=== PATIENT | male | born 1940 | race Caucasian/White ===

== ENCOUNTER 2017-04-16 19:24 | Inpatient (IN) ==
[2017-04-16] MEDS ORDERED: ALBUTEROL/IPRATROPIUM 3 ML NEB RESP TX STA (19:49)
[2017-04-16] MEDS ORDERED: FUROSEMIDE 100 MG/10 ML VIAL IV STA (19:49)
[2017-04-16] MEDS ORDERED: CLINDAMYCIN INJ 900 MG in PREMIX 1 EACH IV STA (19:49)
--- NOTE | 2017-04-16 19:57 | Emergency Department Note ---
Arrival - Arrival Chief Complaint: Shortness of Breath ED Nursing Triage Note: PT ARRIVES VIA EMS WITH COMPLAINTS OF SWELLING AND SOB FOR A WEEK. PT STATES THAT HE RAN OUT OF HIS LASIX AND WHEN HE GOT THE REFILL HE STARTED TAKING IT BUT THAT HE STILL HAS SWELLING AND HAD SOME WORSENING SOB TODAY. PT AT TIME OF TRIAGE DENIES ANY PAIN OR SOB AT THIS TIME. + 4 PTIING EDEMA NOTED TO LOWER EXT. Mode of Arrival: Stretcher Limitations: No Limitations Source: Patient Time Seen by Provider: 04/16/17 19:49 - History of Present Illness HPI Narrative: This 76-year-old white male presents with a history of chronic swelling of the legs associated with orthopnea and PND which had gotten worse over the last several weeks up until a week ago. At that time he saw his primary care physician who increased his Lasix, and aiding in the orthopnea complaints; however, pedal edema has not improved. The patient likewise has been plagued by intermittent retrosternal chest tightness with mild shortness of breath but no diaphoresis, nausea, or vomiting. Currently he appears in no acute distress. Onset (ago): week(s) (Patient presents 1 week post onset of symptoms) Allergies/Adverse Reactions: Allergies Allergy/AdvReac Type Severity Reaction Status Date / Time [place] Allergy Unknown/Unable Verified 07/11/16 15:03 to obtain Penicillins Allergy Unknown/Unable Verified 07/11/16 15:03 to obtain Home Medications: Home Medications Medication Instructions Recorded Confirmed Type Aspirin [Ecotrin] 81 mg PO BEDTIME 07/11/16 04/16/17 History Atorvastatin Calcium 40 mg PO DAILY 07/11/16 04/16/17 History Doxazosin Mesylate 4 mg PO DAILY 07/11/16 04/16/17 History Finasteride 5 mg PO DAILY 07/11/16 04/16/17 History Furosemide Tab [Lasix Tab] 40 mg PO BID DIURETIC 07/11/16 04/16/17 History Gabapentin 300 mg PO TID 07/11/16 04/16/17 History Hydroxychloroquine [Plaquenil] 200 mg PO DAILY 07/11/16 04/16/17 History Ibuprofen Tab [Motrin Tab] 400 mg PO QID PRN #20 tablet 07/11/16 04/16/17 Rx Krill/Om-3/Dha/Epa/Phospho/Ast 1 each PO DAILY 07/11/16 04/16/17 History [[place]-3 Krill Oil 300 mg Sfgl] Levothyroxine Tab [Synthroid Tab] 125 mcg PO DAILY 07/11/16 04/16/17 History Metformin HCl 1,000 mg PO BID 07/11/16 04/16/17 History Methocarbamol Tab [Robaxin Tab] 500 mg PO QID PRN #20 tablet 07/11/16 04/16/17 Rx Ubidecarenone [Coenzyme Q10] 200 mg PO DAILY 07/11/16 04/16/17 History glipiZIDE [Glipizide] 10 mg PO BID 07/11/16 04/16/17 History predniSONE TAB [PredniSONE] 5 mg PO DAILY 07/11/16 04/16/17 History rOPINIRole [Requip] 0.25 mg PO TID 07/11/16 04/16/17 History Clindamycin HCl [Clindamycin Cap] 300 mg PO Q8HR #30 capsule 04/16/17 Rx Ferrous Sulfate [Iron] 325 mg PO TID #90 tablet 04/16/17 Rx Review of System - Review of System 12 point system: reviewed and no additional remarkable complaints except as stated - Review of System Constitutional: Present: as per HPI Respiratory: Present: as per HPI Cardiovascular: Present: as per HPI Gastrointestinal: Present: as per HPI Musculoskeletal: Present: as per HPI Medical,Surgical,& Family Hx - Medical History Cardio: History of: CHF, Hypertension Endocrine: History of: Diabetes Mellitus (NIDDM), Thyroid Disorder Rheumatology: History of;: Rheumatoid Arthritis Respiratory: History of: Obstructive Sleep Apnea Other: History of: Miscellaneous Medical Problems (neuropathy) - Surgical History Orthopedic Surgeries: Surgical HX of;: Total Hip Replacement - Social History Smoking Status: Never smoker Frequency of Alcohol Use: None Type of Drug Use: None Exam Physical Examination: GENERAL: Obese elderly white male in no acute distress. HEENT: Normocephalic. No trauma. Moist mucous membranes. EOMI. PERRLA. ENT NML NECK: Supple. No adenopathy. CARDIAC: Irregular. No murmurs. Heart rate 76 CHEST: Bibasilar expiratory rales. No respiratory distress. ABDOMEN: Soft. Nontender. Active bowel sounds. EXTREMITIES: No trauma. Normal ROM. What appears to be lymphedema rather than rra-oh-smh-mill pedal edema associated with bilateral calf tenderness but negative Hom[place] SKIN: No diaphoresis. Bilateral anterior stasis cellulitis NEURO: Alert. Neuro intact no focal deficits. Vital Signs: Vital Signs Temperature 98.4 F 04/16/17 19:24 Pulse Rate 95 H 04/16/17 20:02 Respiratory Rate 30 H 04/16/17 20:02 Blood Pressure 126/69 04/16/17 19:24 O2 Sat by Pulse Oximetry 100 04/16/17 20:02 Course - Reevaluation(s) Reevaluation #1: Advised patient of the normality of his results and the need to treat a superficial cellulitis. I tried to explain to him the facts of life of chronic lymphedema. He states that his low hematocrit is currently being addressed however he has out of iron tablets and would need more. Results - Labs CBC & BMP: 04/16/17 20:08 04/16/17 20:08 Labs: The low hematocrit was noted. In particular I noted the normal BNP. - Impressions EKG: First-degree heart block at 103 with right bundle branch block. Nonspecific ST changes. No acute injury pattern noted. - Diagnostic Findings Procedure: Chest x-ray: image reviewed by me, report reviewed by me ( Cardiomegaly) Disposition Clinical Impression: Chronic lymphedema, Stasis cellulitis, Chronic anemia Case discussed with: patient, patient's family Disposition: Disch To Home/Self Care Condition: Stable Additional Instructions: Take medications per instructions. Keep your appointment with your physician next week. Take your medications as you are currently with the addition of the antibiotic and iron tablets given tonight. Prescriptions: Clindamycin HCl [Clindamycin Cap] 300 mg PO Q8HR #30 capsule Ferrous Sulfate [Iron] 325 mg PO TID #90 tablet Time of Disposition: 21:30
--- NOTE | 2017-04-16 20:14 | XRay Report ---
History short of breath Comparison 06/12/2011 The heart is mildly enlarged with scoliotic prior median sternotomy Prior left basilar consolidation and effusion has cleared in the interval. No confluent infiltrate seen on today's study Impression: Mild cardiomegaly PROCEDURE INTERPRETED AT [facility] DEPARTMENT OF RADIOLOGY Final Report Signed by: Dr. Jossy Burgos
[2017-04-16] MEDS ORDERED: FUROSEMIDE 40 MG/4 ML VIAL ONE (20:23)
[2017-04-16] MEDS ORDERED: CLINDAMYCIN INJ 50 ML IV ONE (20:23)
[2017-04-16 20:24] LABS: Basophils % 0.2 % (0.0-0.8); Eosinophils # 0.2 10*3/uL (0.0-0.87); Eosinophils % 1.7 % (0.00-10.9); Hemoglobin 8.5 GM/DL (14.0-18.0); Immature Granulocytes % 0.5 %; Immature Granulocytes Absolute 0.05 #; Lymphocytes % 31.8 % (21.2-54.2); Mean Corpuscular HGB Conc 30.4 GM/DL (32-36); Mean Corpuscular Hemoglobin 22 PG (27-34); Mean Corpuscular Volume 73.9 FL (87-102); Monocytes % 10.8 % (1.7-12.7); Neutrophils # 5.2 10*3/uL (1.4-7.4); Platelet Count 299 T/CUMM (130-400); Red Blood Count 3.79 MC/CUMM (3.8-5.5); Red Cell Distribution Width 19.3 % (9.3-17.3); White Blood Count 9.5 T/CUMM (4-12)
[2017-04-16 20:36] LABS: INR 1.1; PT Patient Result 11.8 SECS; Partial Thromboplastin Time 27.6 SECS (0-40)
--- NOTE | 2017-04-16 20:42 | Ultrasound Report ---
History bilateral leg pain and swelling Bilateral lower extremity venous Doppler performed with grayscale, spectral Doppler, and color flow analysis performed and interpreted. No evidence of echogenic, noncompressible thrombus seen in either common femoral, superficial femoral, popliteal, or saphenous veins Impression: No evidence of DVT seen in either lower extremity. PROCEDURE INTERPRETED AT [facility] DEPARTMENT OF RADIOLOGY Final Report Signed by: Dr. Jossy Burgos
[2017-04-16 20:54] LABS: Alanine Aminotransferase 11 U/L (16-61); Albumin 2.4 G/DL (3.4-5.0); Alkaline Phosphatase 49 U/L (45-117); Aspartate Amino Transferase 17 U/L (0-37); Bilirubin,Total < 0.39 MG/DL (0.2-1.0); Blood Urea Nitrogen 41 MG/DL (7-18); Calcium 8.2 MG/DL (8.5-10.1); Glucose 124 MG/DL (74-106); Osmolality,Calculated 293.1 MOS/KG (273-304); Potassium 4.3 MMOL/L (3.5-5.1); Sodium 142 MMOL/L (136-145); Total Protein 5.5 G/DL (6.4-8.3); Troponin I Only < 0.015 NG/ML (0.00-0.045)
[2017-04-16 21:00] LABS: Free T4 (Free Thyroxine) 1.09 NG/DL (0.76-1.46); Thyroid Stimulating Hormone 1.41 uIU/ml (0.358-3.74)
[2017-04-16 21:12] LABS: Apearance,Urine CLEAR (Clear); Bilirubin,Urine Negative (Negative); Blood, Urine Negative (Negative); Glucose,Urine (UA) Negative (Negative); Hyaline Casts,Urine 1 /LPF (0-3); Ketones,Urine 5 mg/dL (Negative); Nitrite,Urine Negative (Negative); Protein,Urine Negative; RBC,Urine <1 /HPF (0-4); Urine Color Straw (Yellow); Urine Specific Gravity 1.017 (1.001-1.035); Urine Urobilinogen < 2.0 EU/DL (0.2-1.0); WBC,Urine <1 /HPF (0-6)
[2017-04-16 21:22] LABS: Barbiturates Screen,Urine Negative (Negative); Benzodiazepines Screen,Urine Negative (Negative); Cannabinoid Screen,Urine Negative (Negative); Opiate Screen,Urine Negative (Negative); Phencyclidine Screen,Urine Negative (Negative)
[2017-04-16] MEDS ORDERED: ONDANSETRON 4 MG/2 ML VIAL ONE (22:01)
[2017-04-16] MEDS ORDERED: ONDANSETRON 4 MG/2 ML VIAL IV STA (22:06)
[2017-04-16] MEDS ORDERED: PANTOPRAZOLE 40 MG VIAL IV STA (22:08)
[2017-04-16] MEDS ORDERED: METOCLOPRAMIDE 10 MG/2 ML VIAL IV STA (22:08)
[2017-04-16] MEDS ORDERED: ALBUTEROL 2.5 MG/3 ML NEB RESP TX PRN (22:59)
[2017-04-16] MEDS ORDERED: METOCLOPRAMIDE 10 MG/2 ML VIAL ONE (22:59)
[2017-04-16] MEDS ORDERED: ONDANSETRON 4 MG/2 ML VIAL IV PRN (22:59)
[2017-04-16] MEDS ORDERED: PANTOPRAZOLE 40 MG VIAL IV ONE (22:59)
[2017-04-16] MEDS ORDERED: GLUCAGON 1 MG VIAL IM PRN (23:03)
[2017-04-16] MEDS ORDERED: DEXTROSE 50% 25 GM/50 ML VIAL IV PRN (23:03)
--- NOTE | 2017-04-16 23:07 | Hospitalist History & Physical ---
Assessment and Plan (1) Upper gastrointestinal hemorrhage Status: Acute Current Visit: Yes (2) History of cardiomyopathy Status: Acute Current Visit: Yes (3) Chronic anemia Status: Acute Current Visit: Yes (4) History of coronary artery disease Status: Acute Current Visit: Yes (5) History of congestive heart failure Status: Acute Current Visit: Yes (6) DNR (do not resuscitate) Status: Acute Assessment and plan: Our plan for this patient will be admission to ICU. Will consult GI for their evaluation. I suspect this is from frequent doses of Motrin. Continue home meds as appropriate. Check Accu-Cheks before meals and at bedtime. Will check H&H every 4 hours. Transfuse as needed. Current Visit: Yes History of Present Illness Chief complaint: Lower extremity swelling History of present illness: Mr. Babcock is a 76 year old male with past medical history significant for anemia, diabetes, congestive heart failure and coronary artery disease who reports he was having chest pain shortness of breath. He has been having some issues with lower extremity swelling. He has been given Lasix before and it improved his symptoms. He said that he had been without his Lasix for a few days. His foot was still swelling. Since his been in the ER his shortness of breath has had improved. But he had a black tarry stool while in the ER and then had coffee-ground emesis. Secondary to an upper GI bleed I was consulted for admission to the emergency room. Home Medications Medication Instructions Recorded Confirmed Type Aspirin [Ecotrin] 81 mg PO BEDTIME 07/11/16 04/16/17 History Atorvastatin Calcium 40 mg PO DAILY 07/11/16 04/16/17 History Doxazosin Mesylate 4 mg PO DAILY 07/11/16 04/16/17 History Finasteride 5 mg PO DAILY 07/11/16 04/16/17 History Furosemide Tab [Lasix Tab] 40 mg PO BID DIURETIC 07/11/16 04/16/17 History Gabapentin 300 mg PO TID 07/11/16 04/16/17 History Hydroxychloroquine [Plaquenil] 200 mg PO DAILY 07/11/16 04/16/17 History Ibuprofen Tab [Motrin Tab] 400 mg PO QID PRN #20 tablet 07/11/16 04/16/17 Rx Krill/Om-3/Dha/Epa/Phospho/Ast 1 each PO DAILY 07/11/16 04/16/17 History [[place]-3 Krill Oil 300 mg Sfgl] Levothyroxine Tab [Synthroid Tab] 125 mcg PO DAILY 07/11/16 04/16/17 History Metformin HCl 1,000 mg PO BID 07/11/16 04/16/17 History Methocarbamol Tab [Robaxin Tab] 500 mg PO QID PRN #20 tablet 07/11/16 04/16/17 Rx Ubidecarenone [Coenzyme Q10] 200 mg PO DAILY 07/11/16 04/16/17 History glipiZIDE [Glipizide] 10 mg PO BID 07/11/16 04/16/17 History predniSONE TAB [PredniSONE] 5 mg PO DAILY 07/11/16 04/16/17 History rOPINIRole [Requip] 0.25 mg PO TID 07/11/16 04/16/17 History Clindamycin HCl [Clindamycin Cap] 300 mg PO Q8HR #30 capsule 04/16/17 Rx Ferrous Sulfate [Iron] 325 mg PO TID #90 tablet 04/16/17 Rx Allergies Allergy/AdvReac Type Severity Reaction Status Date / Time [place] Allergy Unknown/Unable Verified 07/11/16 15:03 to obtain Penicillins Allergy Unknown/Unable Verified 07/11/16 15:03 to obtain Medical,Surgical,& Family Hx - Medical History Cardio: History of: CHF, Hypertension Endocrine: History of: Diabetes Mellitus (NIDDM), Thyroid Disorder Rheumatology: History of;: Rheumatoid Arthritis Respiratory: History of: Obstructive Sleep Apnea Other: History of: Miscellaneous Medical Problems (neuropathy) - Surgical History Orthopedic Surgeries: Surgical HX of;: Total Hip Replacement - Social History Smoking Status: Never smoker Frequency of Alcohol Use: None Type of Drug Use: None 12 point system: reviewed and no additional remarkable complaints except as stated Exam - Constitutional Vitals: Period Temp Pulse Resp BP Sys/Walsh Pulse Ox Last 24 Hr 98.4 F-98.4 F 76-96 22-36 126-126/69-69 93-100 General appearance: over weight - Head Head exam: Present: normal inspection - Eye Eye exam: Present: EOMI Pupils: Present: KADE - ENT ENT exam: Present: normal exam - Neck Neck exam: Present: normal inspection - Respiratory Respiratory exam: Present: clear to auscultation bilaterally - Cardiovascular Cardiovascular exam: Present: regular rate and rhythm - GI/Abdominal GI/Abdominal exam: Present: normal bowel sounds, other (Heme positive stool per ER physician) - Extremities Exam Extremities exam: Present: edema - Back Exam Back exam: Present: normal inspection - Neurological Exam Neurological exam: Present: alert - Psychiatric Psychiatric exam: Present: normal affect - Skin Skin exam: Present: normal color Results - Labs CBC & BMP: 04/16/17 20:08 04/16/17 20:08
[2017-04-16 23:41] LABS: Basophils % 0.4 % (0.0-0.8); Eosinophils # 0.1 10*3/uL (0.0-0.87); Eosinophils % 1.1 % (0.00-10.9); Hematocrit 28.3 VOL% (42.0-52.0); Hemoglobin 8.4 GM/DL (14.0-18.0); Immature Granulocytes % 0.8 %; Immature Granulocytes Absolute 0.07 #; Lymphocytes # 1.9 10*3/uL (1.4-4.0); Lymphocytes % 20.7 % (21.2-54.2); Mean Corpuscular HGB Conc 29.7 GM/DL (32-36); Mean Corpuscular Hemoglobin 22 PG (27-34); Mean Corpuscular Volume 74.9 FL (87-102); Mean Platelet Volume 9.2 FL (9.6-12.0); Monocytes # 0.9 10*3/uL (0.11-0.8); Monocytes % 10.2 % (1.7-12.7); Neutrophils # 6.2 10*3/uL (1.4-7.4); Neutrophils % 66.8 % (38.7-73.9); Platelet Count 316 T/CUMM (130-400); Red Blood Count 3.78 MC/CUMM (3.8-5.5); Red Cell Distribution Width 19.3 % (9.3-17.3); White Blood Count 9.2 T/CUMM (4-12)
[2017-04-17] MEDS: rOPINIRole 0.25 MG TABLET PO SCH ×4 (01:14→20:37)
[2017-04-17 05:14] LABS: Hematocrit 23.8 VOL% (42.0-52.0); Hemoglobin 7.3 GM/DL (14.0-18.0)
[2017-04-17] MEDS: LEVOTHYROXINE 125 MCG TABLET PO SCH (06:56)
[2017-04-17] MEDS ORDERED: diphenhydrAMINE CAP 25 MG CAPSULE PO PRN (07:53)
[2017-04-17] MEDS: INSULIN REGULAR 100 UNIT/ML SUBCUT SCH ×4 (08:14→20:36)
--- NOTE | 2017-04-17 08:14 | EKG Report ---
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
[2017-04-17] MEDS: predniSONE 5 MG TABLET PO SCH (08:15)
[2017-04-17] MEDS: FUROSEMIDE 40 MG TABLET PO SCH ×2 (08:15→16:02)
[2017-04-17] MEDS: DOXAZOSIN 4 MG TABLET PO SCH (08:15)
[2017-04-17] MEDS: ATORVASTATIN 40 MG TABLET PO SCH (08:15)
[2017-04-17] MEDS: HYDROXYCHLOROQUINE 200 MG TABLET PO SCH (08:15)
[2017-04-17] MEDS: GABAPENTIN 300 MG CAPSULE PO SCH ×3 (08:15→20:37)
[2017-04-17] MEDS: FINASTERIDE 5 MG TABLET PO SCH (08:15)
[2017-04-17] MEDS: PANTOPRAZOLE 40 MG VIAL IV SCH ×2 (08:16→20:37)
--- NOTE | 2017-04-17 08:33 | EKG Report ---
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
[2017-04-17] MEDS: TROLAMINE SALICYLATE 10% CREAM 85 GM TUBE TOP PRN (11:53)
--- NOTE | 2017-04-17 12:15 | Gastrointestinal Consult Note ---
Assessment and Plan (1) Upper gastrointestinal hemorrhage Status: Acute Assessment and plan: 6/7-Onset chest discomfort and SOB, melena and coffee ground emesis. Findings of hgb 7.3, transfusing 2 units PRBC. No prior hx of endoscopy. Hx of NSAID use in remote past. Iron supplement therapy. Plan for tentative EGD tomorrow to further evaluate. Plan and addendum to follow by Dr Tidwell. Current Visit: Yes History of Present Illness Chief complaint: GI bleed History of present illness: Mr. Babcock is a 76 year old male who presented to the hospital with onset of swelling to lower extremities as well as SOB. Pt states that he was not feeling well the last couple of days and noted to have increased swelling to his legs. He started back on his Lasix to remove some fluid due to having increased fatigue and shortness of breath. He also states he had some vague chest tightness along with these symptoms. He came to the ER for further evaluation at that time. While in the ER, patient states he had an urge to defecate and at that time had a large amount of dark black stool. He states he also had onset of nausea and began vomitting coffee ground emesis. Pt states this has never occurred before. He states prior to yesterday his stools were normal in color. He denies a history of GI bleeding in the past. Denies history of PUD and state he has never had endoscopy before. He states that he has never been anemic in the past. He is noted on iron therapy as well which pt states he has taken off and on in the past. He was found to have hemoglobin of 8.4 on admission and down to 7.3 today. He is receiving 2 units of PRBC at this time. Pt denies any epigastric pain. He denies any reflux, increased belching, or bloating. He denies any NSAID use however states until two months ago he took upwards of 6 Motrin daily for a period of time due to knee pain, however states this was stopped due to his kidneys. He does not take a PPI regularly. He denies any recent weight loss, fever, chills, night sweats. Denies any dysphagia or GERD symptoms. Home Medications Medication Instructions Recorded Confirmed Type Aspirin [Ecotrin] 81 mg PO BEDTIME 07/11/16 04/16/17 History Atorvastatin Calcium 40 mg PO DAILY 07/11/16 04/16/17 History Doxazosin Mesylate 4 mg PO DAILY 07/11/16 04/16/17 History Finasteride 5 mg PO DAILY 07/11/16 04/16/17 History Furosemide Tab [Lasix Tab] 40 mg PO BID DIURETIC 07/11/16 04/16/17 History Gabapentin 300 mg PO TID 07/11/16 04/16/17 History Hydroxychloroquine [Plaquenil] 200 mg PO DAILY 07/11/16 04/16/17 History Ibuprofen Tab [Motrin Tab] 400 mg PO QID PRN #20 tablet 07/11/16 04/16/17 Rx Krill/Om-3/Dha/Epa/Phospho/Ast 1 each PO DAILY 07/11/16 04/16/17 History [[place]-3 Krill Oil 300 mg Sfgl] Levothyroxine Tab [Synthroid Tab] 125 mcg PO DAILY 07/11/16 04/16/17 History Metformin HCl 1,000 mg PO BID 07/11/16 04/16/17 History Methocarbamol Tab [Robaxin Tab] 500 mg PO QID PRN #20 tablet 07/11/16 04/16/17 Rx Ubidecarenone [Coenzyme Q10] 200 mg PO DAILY 07/11/16 04/16/17 History glipiZIDE [Glipizide] 10 mg PO BID 07/11/16 04/16/17 History predniSONE TAB [PredniSONE] 5 mg PO DAILY 07/11/16 04/16/17 History rOPINIRole [Requip] 0.25 mg PO TID 07/11/16 04/16/17 History Clindamycin HCl [Clindamycin Cap] 300 mg PO Q8HR #30 capsule 04/16/17 Rx Ferrous Sulfate [Iron] 325 mg PO TID #90 tablet 04/16/17 Rx Allergies Allergy/AdvReac Type Severity Reaction Status Date / Time [place] Allergy Unknown/Unable Verified 07/11/16 15:03 to obtain Penicillins Allergy Unknown/Unable Verified 07/11/16 15:03 to obtain Medical,Surgical,& Family Hx - Medical History Cardio: History of: CHF, Hypertension Endocrine: History of: Diabetes Mellitus (NIDDM), Thyroid Disorder Rheumatology: History of;: Rheumatoid Arthritis Respiratory: History of: Obstructive Sleep Apnea, Pneumonia Other: History of: Miscellaneous Medical Problems (neuropathy) - Surgical History Cardiac Surgeries: Sugical HX of: Cardiac Surgery (bypass 2012?) Thoracic Surgeries: Patient denies;: Lobectomy Neurologic Surgeries: Patient denies: Neurologic Surgery Orthopedic Surgeries: Surgical HX of;: Total Hip Replacement - Family History Family History: Reports;: Family Diabetes, Family Heart Disease - Social History Smoking Status: Never smoker Frequency of Alcohol Use: None Type of Drug Use: None 12 point system: reviewed and no additional remarkable complaints except as stated - Constitutional Constitutional: Present: as per HPI - EENT Eyes: Present: as per HPI Ears: Present: as per HPI Nose, mouth and throat: Present: as per HPI - Cardiovascular Cardiovascular: Present: as per HPI, dyspnea - Respiratory Respiratory: Present: as per HPI - Gastrointestinal Gastrointestinal: Present: as per HPI, coffee ground emesis, melena, nausea, vomiting - Genitourinary Genitourinary: Present: as per HPI - Musculoskeletal Musculoskeletal: Present: as per HPI - Neurological Neurological: Present: as per HPI - Psychiatric Psychiatric: Present: as per HPI - Endocrine Endocrine: Present: as per HPI - Hematologic/Lymphatic Hematologic/Lymphatic: Present: as per HPI Exam - Constitutional Vitals: Period Temp Pulse Resp BP Sys/Walsh Pulse Ox Last 24 Hr 97.7 F-99.1 F 76-108 15-36 108-150/53-91 92-100 General appearance: normal weight, no acute distress - Head Head exam: Present: normal inspection, normocephalic - Eye Eye exam: Present: other (lids and conjunctiva unremarkable). Absent: scleral icterus - ENT ENT exam: Present: normal exam, normal oropharynx - Neck Neck exam: Present: normal inspection - Respiratory Respiratory exam: Present: clear to auscultation bilaterally. Absent: rales, rhonchi, wheezes - Cardiovascular Cardiovascular exam: Present: regular rate and rhythm. Absent: diastolic murmur , JVD, systolic murmur - GI/Abdominal GI/Abdominal exam: Present: normal bowel sounds, soft. Absent: ascites, distended, mass, organomegaly, tenderness - Extremities Exam Extremities exam: Present: normal inspection, full ROM - Back Exam Back exam: Present: normal inspection - Neurological Exam Neurological exam: Present: alert, oriented X3 - Psychiatric Psychiatric exam: Present: normal affect, normal mood - Skin Skin exam: Present: normal color, warm, dry Results - Labs CBC & BMP: 04/17/17 04:03 04/16/17 20:08 Lab Results: I have reviewed the past 24 hour labs
[2017-04-17 14:30] LABS: Hematocrit 27.5 VOL% (42.0-52.0); Hemoglobin 8.4 GM/DL (14.0-18.0)
--- NOTE | 2017-04-17 16:12 | Hospitalist Progress Note ---
Assessment and Plan (1) Upper gastrointestinal hemorrhage Status: Acute Current Visit: Yes (2) History of coronary artery disease Status: Acute Current Visit: Yes (3) History of congestive heart failure Status: Acute Current Visit: Yes (4) DNR (do not resuscitate) Status: Acute Assessment and plan: Continue in ICU and Q4 hour H/H checks. Patient has received 2 units of pRBCs with an inappropriate rise in H/H. Continue IV PPI BID. Transfuse to keep Hgb above 8 for EGD in am. Currently hemodynamically stable. NPO at ND. Current Visit: Yes Hospitalist: Subjective Interval history: 76 yo male admitted with symptoms of chest pain and shortness of breath that he related to being out of his Lasix. He was subsequently noted to be severely anemic and was found to have melanic stools and coffee ground emesis. He's been admitted for GI evaluation. Troponin negative. He's recieved 2units pRBC's with an inappropriate response in H/H. GI with plans for endoscopy on tomorrow. Exam - Constitutional Vitals: Period Temp Pulse Resp BP Sys/Walsh Pulse Ox Last 24 Hr 97.7 F-99.1 F 75-108 12-36 108-150/53-91 92-100 General appearance: no acute distress - Head Head exam: Present: normal inspection, normocephalic, atraumatic - Respiratory Respiratory exam: Present: clear to auscultation bilaterally - Cardiovascular Cardiovascular exam: Present: regular rate and rhythm - GI/Abdominal GI/Abdominal exam: Present: normal bowel sounds - Neurological Exam Neurological exam: Present: CN II-XII intact - Skin Skin exam: Present: pallor Results - Labs CBC & BMP: 04/17/17 14:21 04/16/17 20:08
[2017-04-17 18:47] LABS: Hematocrit 27.1 VOL% (42.0-52.0); Hemoglobin 8.4 GM/DL (14.0-18.0)
[2017-04-17 23:00] LABS: Hematocrit 28.7 VOL% (42.0-52.0); Hemoglobin 8.8 GM/DL (14.0-18.0)
[2017-04-18] MEDS: LEVOTHYROXINE 125 MCG TABLET PO SCH (06:07)
[2017-04-18] MEDS: TROLAMINE SALICYLATE 10% CREAM 85 GM TUBE TOP PRN ×2 (07:00→10:45)
[2017-04-18] MEDS: INSULIN REGULAR 100 UNIT/ML SUBCUT SCH ×5 (07:29→20:48)
[2017-04-18 07:44] LABS: Hematocrit 28.6 VOL% (42.0-52.0); Hemoglobin 8.5 GM/DL (14.0-18.0)
[2017-04-18] MEDS: PANTOPRAZOLE 40 MG VIAL IV SCH ×2 (09:00→20:48)
[2017-04-18] MEDS ORDERED: PROPOFOL 200 MG/20 ML VIAL IV ONE (09:30)
[2017-04-18] MEDS ORDERED: LIDOCAINE 2% 5 ML VIAL ONE (09:30)
--- NOTE | 2017-04-18 09:33 | History and Physical Update ---
History and Physical Update - History and Physical H&P was reviewed, the patient examined and there: are no changes in the patients condition since last H&P was completed. - Physical Exam Mental Status: alert and oriented Heart: regular rate and rhythm Lung: clear to auscultation Abdomen: within normal limits Vitals: within normal limits
--- NOTE | 2017-04-18 09:41 | Operative Note ---
Date of procedure: 04/18/17 Pre-op diagnosis: Upper GI bleed Procedure: Procedure: Esophagogastroduodenoscopy with heater probe coagulation gastric ulcer visible vessel and biopsies gastric ulcers Brief clinical abstract: 76-year-old male was admitted with upper GI bleeding with hematemesis and melena. He has required transfusion 2 units packed red blood cells. Indication for procedure: Upper GI bleeding Endoscopic findings:[After informed consent was obtained, the patient was placed in the left lateral decubitus position. The gastroscope was inserted in the upper esophagus under direct vision with no resistance encountered. Esophageal mucosa appeared normal with squamocolumnar junction sharply demarcated above a small hiatal hernia. The endoscope was advanced in the stomach which was carefully examined including retroflexed view of the cardia and fundus. There was a fairly large 1.5-2 cm diameter yellowish based ulcer along the distal greater curve in the antrum. A small visible vessel was noted in the base of this. This was coagulated with heater probe on a setting of 30 W with 2 separate 3 second applications administered with good result noted endoscopically. This did not bleed. A couple of other small 5 mm ulcers were noted in the prepyloric antrum. Several biopsies were obtained from the margin base of these ulcers for pathologic examination. The pyloric channel, duodenal bulb, second and third portion of the duodenum appeared normal. The endoscope was withdrawn and patient appeared to tolerate the procedure well. Impression: #1 small hiatal hernia #2 gastric antral ulcers-1 with visible vessel treated endoscopically as above. Recommendations: Continue PPI therapy. Would observe another 2-3 days with still some residual bleeding risk of endoscopically treated visible vessel. Anesthesia: MAC Surgeon / Physician: Quoc Tidwell Estimated blood loss: minimal Specimens: other (Gastric ulcers) Condition: stable Disposition: post procedure unit Results - Labs CBC & BMP: 04/18/17 07:39 04/16/17 20:08 Discharge Plan - Discharge Medications New Clindamycin HCl [Clindamycin Cap] 300 mg PO Q8HR #30 capsule Ferrous Sulfate [Iron] 325 mg PO TID #90 tablet No Action rOPINIRole [Requip] 0.25 mg PO TID Atorvastatin Calcium 40 mg PO DAILY Aspirin [Ecotrin] 81 mg PO BEDTIME Ubidecarenone [Coenzyme Q10] 200 mg PO DAILY Levothyroxine Tab [Synthroid Tab] 125 mcg PO DAILY Hydroxychloroquine [Plaquenil] 200 mg PO DAILY predniSONE TAB [PredniSONE] 5 mg PO DAILY Furosemide Tab [Lasix Tab] 40 mg PO BID DIURETIC Finasteride 5 mg PO DAILY Doxazosin Mesylate 4 mg PO DAILY glipiZIDE [Glipizide] 10 mg PO BID Metformin HCl 1,000 mg PO BID Krill/Om-3/Dha/Epa/Phospho/Ast [[place]-3 Krill Oil 300 mg Sfgl] 1 each PO DAILY Gabapentin 300 mg PO TID Ibuprofen Tab [Motrin Tab] 400 mg PO QID PRN #20 tablet PRN Reason: back pain Methocarbamol Tab [Robaxin Tab] 500 mg PO QID PRN #20 tablet PRN Reason: low back pain Fexofenadine [Syeda] 180 mg PO DAILY - Follow Up or Referral - Forms/Instructions
--- NOTE | 2017-04-18 09:53 | Anesthesia Post-Op ---
Anesthesia Post OP - Post Ansesthetic Evaluation Patient seen in post op: Yes Resp: within normal limits CV: within normal limits Mental: within normal limits Temp: within normal limits Lsma-[id number]-[id number]: within normal limits Nausea and Vomiting: within normal limits Pain: within normal limits
[2017-04-18] MEDS: ATORVASTATIN 40 MG TABLET PO SCH (10:50)
[2017-04-18] MEDS: rOPINIRole 0.25 MG TABLET PO SCH ×3 (10:50→20:47)
[2017-04-18] MEDS: GABAPENTIN 300 MG CAPSULE PO SCH ×3 (10:50→20:48)
[2017-04-18] MEDS: FINASTERIDE 5 MG TABLET PO SCH (10:50)
[2017-04-18] MEDS: predniSONE 5 MG TABLET PO SCH (10:50)
[2017-04-18] MEDS: DOXAZOSIN 4 MG TABLET PO SCH (10:50)
[2017-04-18] MEDS: HYDROXYCHLOROQUINE 200 MG TABLET PO SCH (10:50)
[2017-04-18] MEDS: FUROSEMIDE 40 MG TABLET PO SCH ×2 (10:50→15:48)
--- NOTE | 2017-04-18 12:35 | Hospitalist Progress Note ---
Assessment and Plan (1) Upper gastrointestinal hemorrhage Status: Acute Current Visit: Yes (2) History of coronary artery disease Status: Acute Current Visit: Yes (3) History of congestive heart failure Status: Acute Current Visit: Yes (4) DNR (do not resuscitate) Status: Acute Assessment and plan: 04/17/17. Continue in ICU and Q4 hour H/H checks. Patient has received 2 units of pRBCs with an inappropriate rise in H/H. Continue IV PPI BID. Transfuse to keep Hgb above 8 for EGD in am. Currently hemodynamically stable. NPO at [place]. 04/18/17. S/P EGD this morning with results of: "Impression: #1 small hiatal hernia #2 gastric antral ulcers-1 with visible vessel treated endoscopically... " Will transfer out of the ICU. Continue to monitor H/H for 2-3 days per GI given residual bleeding risk of endoscopically treated visible vessel. Will continue with PPI treatment. Currently hemodynamically stable. Current Visit: Yes Hospitalist: Subjective Interval history: 76 yo male admitted with symptoms of chest pain and shortness of breath that he related to being out of his Lasix. He was subsequently noted to be severely anemic and was found to have melanic stools and coffee ground emesis. He's been admitted for GI evaluation. Troponin negative. He's recieved 2units pRBC's with an inappropriate response in H/H. Today, he is s/p EDG with multiple gastic ulcers noted on exam. One with a visible non-bleeding vessel that was cauterized. He remains hemodynamically stable but will need to have continued monitoring of H/H to ensure no further blood loss. Continues on IV PPI BID. Exam - Constitutional Vitals: Period Temp Pulse Resp BP Sys/Walsh Pulse Ox Last 24 Hr 96.6 F-99.6 F 70-97 12-28 86-153/54-87 91-100 Exam: General appearance: no acute distress - Head Head exam: Present: normal inspection, normocephalic, atraumatic - Respiratory Respiratory exam: Present: clear to auscultation bilaterally - Cardiovascular Cardiovascular exam: Present: regular rate and rhythm - GI/Abdominal GI/Abdominal exam: Present: hypoactive bowel sounds - Neurological Exam Neurological exam: Present: CN II-XII intact; Essential tremor of right hand. - Skin Skin exam: Present: pallor Results - Labs CBC & BMP: 04/18/17 07:39 04/16/17 20:08
[2017-04-18] MEDS: VANCOMYCIN INJ 1,750 MG in SODIUM CHLORIDE 0.9% 500 ML IV SCH (20:46)
[2017-04-19] MEDS: LEVOTHYROXINE 125 MCG TABLET PO SCH (06:11)
[2017-04-19] MEDS: INSULIN REGULAR 100 UNIT/ML SUBCUT SCH ×4 (07:58→22:07)
[2017-04-19] MEDS: GABAPENTIN 300 MG CAPSULE PO SCH ×3 (07:59→20:41)
[2017-04-19] MEDS: DOXAZOSIN 4 MG TABLET PO SCH (07:59)
[2017-04-19] MEDS: rOPINIRole 0.25 MG TABLET PO SCH ×3 (08:00→20:41)
[2017-04-19] MEDS: FINASTERIDE 5 MG TABLET PO SCH (08:00)
[2017-04-19] MEDS: ATORVASTATIN 40 MG TABLET PO SCH (08:00)
[2017-04-19] MEDS: predniSONE 5 MG TABLET PO SCH (08:00)
[2017-04-19] MEDS: PANTOPRAZOLE 40 MG VIAL IV SCH (08:00)
[2017-04-19] MEDS: VANCOMYCIN INJ 1,750 MG in SODIUM CHLORIDE 0.9% 500 ML IV SCH ×2 (08:00→20:41)
[2017-04-19] MEDS: HYDROXYCHLOROQUINE 200 MG TABLET PO SCH (08:00)
[2017-04-19] MEDS: FUROSEMIDE 40 MG TABLET PO SCH ×2 (08:00→15:28)
[2017-04-19] MEDS: DESITIN 4OZ/NYSTATIN 15 GRAM MIXTURE PASTE TOP SCH ×2 (08:05→22:07)
--- NOTE | 2017-04-19 09:21 | Gastrointestinal Progress Note ---
Assessment and Plan (1) Upper gastrointestinal hemorrhage Status: Acute Assessment and plan: 04/19-no further overt bleeding. EGD findings noted as below. Recheck hemoglobin today. Advance to soft diet. Plan addendum to follow by Dr. Tidwell 04/17-Onset chest discomfort and SOB, melena and coffee ground emesis. Findings of hgb 7.3, transfusing 2 units PRBC. No prior hx of endoscopy. Hx of NSAID use in remote past. Iron supplement therapy. Plan for tentative EGD tomorrow to further evaluate. Plan and addendum to follow by Dr Tidwell. Current Visit: Yes Gastroenterology - PN: Subj Interval history: Cc: GI bleed Patient seen awake alert lying in bed. States he had an uneventful night. He denies any further overt bleeding at this time. Denies any nausea, vomiting or abdominal pain. He is tolerating his diet well. EGD findings noted with small hiatal hernia and gastric antral ulcers with one visible vessel which was treated. His hemoglobin remained stable however no recheck noted today. Will obtain H&H this morning. Abdomen soft, nontender. RS: Denies shortness or chest pain Exam (Progress Note) - Constitutional Vitals: Period Temp Pulse Resp BP Sys/Walsh Pulse Ox Last 24 Hr 97.7 F-99.2 F 83-110 16-28 80-154/40-102 91-97 - Other Additional findings: General appearance: normal weight, no acute distress - Head Head exam: Present: normal inspection, normocephalic - Eye Eye exam: Present: other (lids and conjunctiva unremarkable). Absent: scleral icterus - ENT ENT exam: Present: normal exam, normal oropharynx - Neck Neck exam: Present: normal inspection - Respiratory Respiratory exam: Present: clear to auscultation bilaterally. Absent: rales, rhonchi, wheezes - Cardiovascular Cardiovascular exam: Present: regular rate and rhythm. Absent: diastolic murmur , JVD, systolic murmur - GI/Abdominal GI/Abdominal exam: Present: normal bowel sounds, soft. Absent: ascites, distended, mass, organomegaly, tenderness - Extremities Exam Extremities exam: Present: normal inspection, full ROM - Back Exam Back exam: Present: normal inspection - Neurological Exam Neurological exam: Present: alert, oriented X3 - Psychiatric Psychiatric exam: Present: normal affect, normal mood - Skin Skin exam: Present: normal color, warm, dry Results - Labs CBC & BMP: 04/18/17 07:39 04/16/17 20:08 Lab Results: I have reviewed the past 24 hour labs
[2017-04-19 09:25] LABS: Hematocrit 25.8 VOL% (42.0-52.0); Hemoglobin 7.8 GM/DL (14.0-18.0)
[2017-04-19 09:58] LABS: Hematocrit 26.3 VOL% (42.0-52.0)
--- NOTE | 2017-04-19 11:36 | Pain Management Consult Note ---
Assessment and Plan (1) Knee pain, left Status: Acute Assessment and plan: While his c/o knee pain are chronic he refuses to ambulate. Weight is problematic, possible containment on one blood culture, if sepsis suspected would need MRI. Current Visit: Yes History of Present Illness Chief complaint: left knee pain History of present illness: Mr. Babcock is a 76 year old male chronic left knee pain with him and son reporting increased pain swelling and redness although the swelling has reduced and there is no redness. He wont weight bear on it. We treated him in the past for spondylosis and radiculitis with success. Home Medications Medication Instructions Recorded Confirmed Type Aspirin [Ecotrin] 81 mg PO BEDTIME 07/11/16 04/16/17 History Atorvastatin Calcium 40 mg PO DAILY 07/11/16 04/16/17 History Doxazosin Mesylate 4 mg PO DAILY 07/11/16 04/16/17 History Finasteride 5 mg PO DAILY 07/11/16 04/16/17 History Furosemide Tab [Lasix Tab] 40 mg PO BID DIURETIC 07/11/16 04/16/17 History Gabapentin 300 mg PO TID 07/11/16 04/16/17 History Hydroxychloroquine [Plaquenil] 200 mg PO DAILY 07/11/16 04/16/17 History Ibuprofen Tab [Motrin Tab] 400 mg PO QID PRN #20 tablet 07/11/16 04/16/17 Rx Krill/Om-3/Dha/Epa/Phospho/Ast 1 each PO DAILY 07/11/16 04/16/17 History [[place]-3 Krill Oil 300 mg Sfgl] Levothyroxine Tab [Synthroid Tab] 125 mcg PO DAILY 07/11/16 04/16/17 History Metformin HCl 1,000 mg PO BID 07/11/16 04/16/17 History Methocarbamol Tab [Robaxin Tab] 500 mg PO QID PRN #20 tablet 07/11/16 04/16/17 Rx Ubidecarenone [Coenzyme Q10] 200 mg PO DAILY 07/11/16 04/16/17 History glipiZIDE [Glipizide] 10 mg PO BID 07/11/16 04/16/17 History predniSONE TAB [PredniSONE] 5 mg PO DAILY 07/11/16 04/16/17 History rOPINIRole [Requip] 0.25 mg PO TID 07/11/16 04/16/17 History Clindamycin HCl [Clindamycin Cap] 300 mg PO Q8HR #30 capsule 04/16/17 Rx Ferrous Sulfate [Iron] 325 mg PO TID #90 tablet 04/16/17 Rx Fexofenadine [Syeda] 180 mg PO DAILY 04/17/17 04/17/17 History Allergies Allergy/AdvReac Type Severity Reaction Status Date / Time Glady Allergy Unknown/Unable Verified 07/11/16 15:03 to obtain Penicillins Allergy Unknown/Unable Verified 07/11/16 15:03 to obtain Medical,Surgical,& Family Hx - Medical History Cardio: History of: CHF, Hypertension Neurology: No history of: Seizures Endocrine: History of: Diabetes Mellitus (NIDDM), Thyroid Disorder Rheumatology: History of;: Rheumatoid Arthritis Respiratory: History of: Obstructive Sleep Apnea, Pneumonia Other: History of: Miscellaneous Medical Problems (neuropathy) - Surgical History Cardiac Surgeries: Sugical HX of: Cardiac Surgery (bypass 2012?) Thoracic Surgeries: Patient denies;: Lobectomy Neurologic Surgeries: Patient denies: Neurologic Surgery Orthopedic Surgeries: Surgical HX of;: Total Hip Replacement - Family History Family History: Reports;: Family Diabetes, Family Heart Disease - Social History Smoking Status: Never smoker Frequency of Alcohol Use: None Type of Drug Use: None Exam - Constitutional Vitals: Period Temp Pulse Resp BP Sys/Walsh Pulse Ox Last 24 Hr 97.7 F-99.2 F 83-110 16-20 85-154/50-75 94-97 Results - Labs CBC & BMP: 04/19/17 09:48 04/16/17 20:08
[2017-04-19] MEDS ORDERED: LIDOCAINE 2% 20 ML VIAL MISC INJ ONE (11:44)
[2017-04-19] MEDS ORDERED: TRIAMCINOLONE ACETONIDE 40 MG/1 ML VIAL MISC INJ ONE (11:49)
--- NOTE | 2017-04-19 12:42 | Event Note ---
left knee injection after consent, 25 g after EtOH prep to medial inferior approach center joint neg aspiration, 5 cc lidocaine and 40 mg triamcinalone. No complication.
--- NOTE | 2017-04-19 12:49 | Hospitalist Progress Note ---
Assessment and Plan (1) Upper gastrointestinal hemorrhage Status: Acute Assessment and plan: Status post EGD showed small hiatal hernia and gastric antral ulcers one with a visible vessel treated endoscopically. Continue Protonix Current Visit: Yes (2) Acute blood loss anemia Status: Acute Assessment and plan: Hemoglobin at 8, repeat hemoglobin in a.m. Current Visit: Yes (3) History of coronary artery disease Status: Acute Assessment and plan: Withhold aspirin for a total of 2 weeks Current Visit: Yes (4) History of congestive heart failure Status: Acute Assessment and plan: Echocardiogram not on file. BNP normal. Current Visit: Yes (5) DNR (do not resuscitate) Status: Acute Current Visit: Yes (6) Knee pain, left Status: Acute Assessment and plan: Patient receiving knee injection today by dr. Adams. Current Visit: Yes (7) Obstructive sleep apnea Status: Acute Assessment and plan: Patient sleeps on a CPAP machine at home but did not bring with him. Current Visit: Yes (8) Bacteremia Status: Acute Assessment and plan: 1 of 2 blood cultures positive for staph and gram-positive filiberto both of which are most likely a contaminant, continue vancomycin for now Current Visit: Yes Hospitalist: Subjective Interval history: Patient ambulates with a walker at home. I would like to see him able to do this before going home. Patient was reporting having a lot of pain in his left knee. Dr. Adams does the injections in his back. He is also having a lot of problems with his hip. Dr. Adams is seen him today and done an injection. The blood cultures are most likely a contaminant as they are 1 of 2. He is EGD downstairs showed 2 ulcers. We have advanced his diet to a soft diet. Patient is morbidly obese and elderly. He does not really want to go for rehab prior to going home. We will see how he does with PT today Exam - Constitutional Vitals: Period Temp Pulse Resp BP Sys/Walsh Pulse Ox Last 24 Hr 97.7 F-98.9 F 82-110 16-20 99-154/50-75 95-97 Exam: Heart Rate-[RRR] Lungs-[very diminished] GI-[+bs soft, NT] Ext-[1+ edema] Neuro [Motor 5/5], [alert and oriented times 3] psych [normal mood and affect] General [no acute distress] Results - Labs CBC & BMP: 04/19/17 09:48 04/16/17 20:08 Lab Results: I have reviewed the past 24 hour labs - Diagnostic Findings Procedure: Chest x-ray: report reviewed by me (Enlarged heart), Ultrasound: report reviewed by me (Negative DVT)
--- NOTE | 2017-04-19 13:29 | Pathology Report from [facility] ---
[facility] ACCESSION # : [id number] PATIENT NAME : Jr. Babcock Oliver A. ORDERING DR : KURT BIRD MD CLINICAL HX: GI Bleed POST-OP DX: Gastric ulcer SPECIMEN INFO: Gastric ulcer biopsy GROSS DESCRIPTION: The specimen is received in formalin labeled with the patients name and consists of a 0.9 x 0.4 cm aggregate of chowdary tissue. Submitted in one cassette. DIAGNOSIS FOR [facility] [place]: GASTRIC ULCER BIOPSY: Chronic superficial gastritis. H. pylori not seen on special stain. COLLECTED DATE: 04/18/2017 [facility] REPORT DATE: 04/19/2017 ELECTRONICALLY SIGNED BY: Dileep Penn M.D. 04/19/2017 - 10:23:34 [facility] CENTERHailey
--- NOTE | 2017-04-19 15:29 | ECHO Report ---
Paul Babcock Exam Date: 04/19/2017 14:31 Referring Physician: Technologist: Lala Alvarez Age: 76 Ht (in): 68 Wt (lb): 266 Gender: M Exam Location: [facility] Echo Indications: bacteremia, SHERRI, knee pain, Hx. CHF, SOB, upper gastric hemorrhage, acute anemia, Hx. CAD BP: 130 / 65 HR: 82 Rhythm: Sinus Technical Quality: Technically difficult study IMPRESSIONS Mild concentric left ventricular hypertrophy with diastolic dysfunction. Left ventricular ejection fraction is estimated at 55-60 %. Normal right ventricular size. The right atrium is mildly enlarged. The left atrium is mildly enlarged. Mild mitral valve sclerosis. Trace - mild mitral valve regurgitation. Mild aortic valve sclerosis. Trace aortic valve regurgitation. Morphologically normal tricuspid valve. Mild tricuspid valve regurgitation. Tricuspid regurgitation velocities suggest a PAP of 28 mmHg. Morphologically normal pulmonic valve. Trace pulmonary valve regurgitation. No pericardial effusion. Normal size aortic root and proximal ascending aorta. MEASUREMENTS (Male / Female) Normal Values 2D ECHO LV Diastolic Diameter PLAX 5.0 cm 4.2 - 5.9 / 3.9 - 5.3 cm LV Systolic Diameter PLAX 2.8 cm LV Fractional Shortening PLAX 44.0 % IVS Diastolic Thickness 1.3 cm 0.6 - 1.0 / 0.6 - 0.9 cm LVPW Diastolic Thickness 1.3 cm 0.6 - 1.0 / 0.6 - 0.9 cm RV Internal Dim ED PLAX 3.2 cm Aortic Root Diameter 2.8 cm LA Systolic Diameter LX 3.4 cm 3.0 - 4.0 / 2.7 - 3.8 cm DOPPLER TR Peak Velocity 210.0 cm/s TR Peak Gradient 17.6 mmHg FINDINGS Left Ventricle Mild concentric left ventricular hypertrophy with diastolic dysfunction. Left ventricular ejection fraction is estimated at 55-60 %. Right Ventricle Normal right ventricular size. Right Atrium The right atrium is mildly enlarged. Left Atrium The left atrium is mildly enlarged. Mitral Valve Mild mitral valve sclerosis. Trace - mild mitral valve regurgitation. Aortic Valve Mild aortic valve sclerosis. Trace aortic valve regurgitation. Tricuspid Valve Morphologically normal tricuspid valve. Mild tricuspid valve regurgitation. Tricuspid regurgitation velocities suggest a PAP of 28 mmHg. Pulmonic Valve Morphologically normal pulmonic valve. Trace pulmonary valve regurgitation. Pericardium No pericardial effusion. Aorta Normal size aortic root and proximal ascending aorta. Roberth Kowalski MD (Electronically Signed) Final Date: 19 April 2017 15:28
[2017-04-19] MEDS: PANTOPRAZOLE 40 MG TABLET PO SCH (20:41)
[2017-04-20] MEDS: LEVOTHYROXINE 125 MCG TABLET PO SCH (06:00)
[2017-04-20 06:02] LABS: Basophils % 0.2 % (0.0-0.8); Eosinophils # 0.2 10*3/uL (0.0-0.87); Eosinophils % 3.2 % (0.00-10.9); Hematocrit 26.1 VOL% (42.0-52.0); Hemoglobin 7.8 GM/DL (14.0-18.0); Immature Granulocytes % 0.8 %; Immature Granulocytes Absolute 0.05 #; Lymphocytes # 1.7 10*3/uL (1.4-4.0); Mean Corpuscular HGB Conc 29.9 GM/DL (32-36); Mean Corpuscular Hemoglobin 23 PG (27-34); Mean Corpuscular Volume 78.1 FL (87-102); Mean Platelet Volume 8.8 FL (9.6-12.0); Monocytes # 0.7 10*3/uL (0.11-0.8); Neutrophils # 3.5 10*3/uL (1.4-7.4); Neutrophils % 56.8 % (38.7-73.9); Platelet Count 255 T/CUMM (130-400); Red Blood Count 3.34 MC/CUMM (3.8-5.5); Red Cell Distribution Width 19.8 % (9.3-17.3); White Blood Count 6.2 T/CUMM (4-12)
[2017-04-20] MEDS ORDERED: SODIUM CHLORIDE 0.9% 250 ML IV PRN ×3 (06:16→16:35)
--- NOTE | 2017-04-20 08:50 | Gastrointestinal Progress Note ---
Assessment and Plan (1) Upper gastrointestinal hemorrhage Status: Acute Assessment and plan: 04/20-No overt bleeding. Hgb down at 7.8 today. To be transfused 2 units PRBC. Give Mirilax daily. Consult PT for strength and gait training. Plan and addendum to follow by Dr Tidwell. 04/19-no further overt bleeding. EGD findings noted as below. Recheck hemoglobin today. Advance to soft diet. Plan addendum to follow by Dr. Tidwell 04/17-Onset chest discomfort and SOB, melena and coffee ground emesis. Findings of hgb 7.3, transfusing 2 units PRBC. No prior hx of endoscopy. Hx of NSAID use in remote past. Iron supplement therapy. Plan for tentative EGD tomorrow to further evaluate. Plan and addendum to follow by Dr Tidwell. Current Visit: Yes Gastroenterology - PN: Subj Interval history: CC: GI bleed Pt is seen awake and alert sitting up on side of bed. States he rested well overnight. He is noted to have a drop in his hemoglobin today at 7.8 without any overt bleeding. He has not had a bowel movement since admission. He denies any abdominal pain, nausea or vomiting. He has a good appetite and tolerating diet well. Abdomen is soft, nontender. He states he does feel a little weak being in the bed and wishes to get up and walk around but requires walker for this. Will have physical therapy come by and also order something for his bowels. ROS: Denies SOB or chest pain Exam (Progress Note) - Constitutional Vitals: Period Temp Pulse Resp BP Sys/Walsh Pulse Ox Last 24 Hr 97.9 F-99.0 F 70-91 16-20 120-133/52-65 93-98 - Other Additional findings: General appearance: normal weight, no acute distress - Head Head exam: Present: normal inspection, normocephalic - Eye Eye exam: Present: other (lids and conjunctiva unremarkable). Absent: scleral icterus - ENT ENT exam: Present: normal exam, normal oropharynx - Neck Neck exam: Present: normal inspection - Respiratory Respiratory exam: Present: clear to auscultation bilaterally. Absent: rales, rhonchi, wheezes - Cardiovascular Cardiovascular exam: Present: regular rate and rhythm. Absent: diastolic murmur , JVD, systolic murmur - GI/Abdominal GI/Abdominal exam: Present: normal bowel sounds, soft. Absent: ascites, distended, mass, organomegaly, tenderness - Extremities Exam Extremities exam: Present: normal inspection, full ROM - Back Exam Back exam: Present: normal inspection - Neurological Exam Neurological exam: Present: alert, oriented X3 - Psychiatric Psychiatric exam: Present: normal affect, normal mood - Skin Skin exam: Present: normal color, warm, dry Results - Labs CBC & BMP: 04/20/17 05:28 04/16/17 20:08 Lab Results: I have reviewed the past 24 hour labs
[2017-04-20] MEDS: ATORVASTATIN 40 MG TABLET PO SCH (09:07)
[2017-04-20] MEDS: GABAPENTIN 300 MG CAPSULE PO SCH ×3 (09:07→20:40)
[2017-04-20] MEDS: DOXAZOSIN 4 MG TABLET PO SCH (09:07)
[2017-04-20] MEDS: INSULIN REGULAR 100 UNIT/ML SUBCUT SCH ×4 (09:07→21:10)
[2017-04-20] MEDS: rOPINIRole 0.25 MG TABLET PO SCH ×3 (09:07→20:40)
[2017-04-20] MEDS: FINASTERIDE 5 MG TABLET PO SCH (09:07)
[2017-04-20] MEDS: PANTOPRAZOLE 40 MG TABLET PO SCH ×2 (09:07→20:40)
[2017-04-20] MEDS: FUROSEMIDE 40 MG TABLET PO SCH ×2 (09:07→16:49)
[2017-04-20] MEDS: predniSONE 5 MG TABLET PO SCH (09:07)
[2017-04-20] MEDS: HYDROXYCHLOROQUINE 200 MG TABLET PO SCH (09:07)
[2017-04-20] MEDS: POLYETHYLENE GLYCOL POWDER 17 GM PACK PO SCH (09:08)
[2017-04-20] MEDS: VANCOMYCIN INJ 1,750 MG in SODIUM CHLORIDE 0.9% 500 ML IV SCH (09:08)
[2017-04-20] MEDS: DESITIN 4OZ/NYSTATIN 15 GRAM MIXTURE PASTE TOP SCH ×2 (09:08→20:41)
[2017-04-20] MEDS ORDERED: MAGNESIUM CITRATE 300 ML BOTTLE PO ONE (10:13)
--- NOTE | 2017-04-20 16:32 | Hospitalist Progress Note ---
Assessment and Plan (1) Upper gastrointestinal hemorrhage Status: Acute Assessment and plan: Status post EGD showed small hiatal hernia and gastric antral ulcers one with a visible vessel treated endoscopically. Continue Protonix Current Visit: Yes (2) Acute blood loss anemia Status: Acute Assessment and plan: 2 units packed red blood cells today and recheck in a.m. Will give patient laxative to make him have a bowel movement. Current Visit: Yes (3) History of coronary artery disease Status: Acute Assessment and plan: Withhold aspirin for a total of 2 weeks Current Visit: Yes (4) History of congestive heart failure Status: Acute Assessment and plan: Echocardiogram EF 55-60%, PAP 28 Current Visit: Yes (5) DNR (do not resuscitate) Status: Acute Current Visit: Yes (6) Knee pain, left Status: Acute Assessment and plan: Improved after injection by Dr. Adams. Thanks for his help. Current Visit: Yes (7) Obstructive sleep apnea Status: Acute Assessment and plan: Patient sleeps on a CPAP machine at home but did not bring with him. Current Visit: Yes (8) Bacteremia Status: Acute Assessment and plan: 1 of 2 blood cultures positive for staph epi and gram-positive filiberto both of which are most likely a contaminant, stopping vancomycin Current Visit: Yes Hospitalist: Subjective Interval history: Mr. Babcock looked good today with sitting up in a chair joking with his family. Family at bedside uptake given. Patient has not had a bowel movement. He tends to be very constipated at home. Gave him a dose of mag citrate. Patient was only able to walk 25 feet with physical therapy today. Patients knee is much better after injection. Exam - Constitutional Vitals: Period Temp Pulse Resp BP Sys/Walsh Pulse Ox Last 24 Hr 97.7 F-98.5 F 70-88 16-20 120-145/54-70 93-98 Exam: Heart Rate-[RRR] Lungs-[very diminished some of which is due to obesity] GI-[+bs soft, NT] Ext-[1+ edema] Neuro [Motor 5/5], [alert and oriented times 3] psych [normal mood and affect] General [no acute distress] Results - Labs CBC & BMP: 04/20/17 05:28 04/16/17 20:08 Lab Results: I have reviewed the past 24 hour labs
--- NOTE | 2017-04-20 19:18 | XRay Report ---
History short of breath Comparison 04/16/2017 The heart is enlarged with sequelae of prior median sternotomy There is increasing confluent infiltrate and air bronchograms in the left lung base partially obscuring the left diaphragm Right lung is clear Impression: Worsening left lower lobe infiltrate/atelectasis. Follow-up until clear recommended PROCEDURE INTERPRETED AT [facility] [place] DEPARTMENT OF RADIOLOGY Final Report Signed by: Dr. Jossy Burgos
[2017-04-20] MEDS ORDERED: FUROSEMIDE 20 MG/2 ML VIAL IV ONE (23:15)
[2017-04-20 23:37] LABS: Hematocrit 30.6 VOL% (42.0-52.0); Hemoglobin 9.6 GM/DL (14.0-18.0)
[2017-04-21 04:51] LABS: Basophils % 0.4 % (0.0-0.8); Eosinophils # 0.4 10*3/uL (0.0-0.87); Eosinophils % 5.3 % (0.00-10.9); Hematocrit 30.6 VOL% (42.0-52.0); Hemoglobin 9.5 GM/DL (14.0-18.0); Immature Granulocytes % 1.5 %; Immature Granulocytes Absolute 0.11 #; Lymphocytes # 1.6 10*3/uL (1.4-4.0); Lymphocytes % 21.6 % (21.2-54.2); Mean Corpuscular Hemoglobin 25 PG (27-34); Mean Corpuscular Volume 78.9 FL (87-102); Mean Platelet Volume 8.7 FL (9.6-12.0); Monocytes # 0.9 10*3/uL (0.11-0.8); Monocytes % 12.7 % (1.7-12.7); Neutrophils # 4.2 10*3/uL (1.4-7.4); Neutrophils % 58.5 % (38.7-73.9); Platelet Count 288 T/CUMM (130-400); Red Blood Count 3.88 MC/CUMM (3.8-5.5); Red Cell Distribution Width 19.3 % (9.3-17.3); White Blood Count 7.2 T/CUMM (4-12)
[2017-04-21] MEDS: LEVOTHYROXINE 125 MCG TABLET PO SCH (06:02)
[2017-04-21] MEDS: INSULIN REGULAR 100 UNIT/ML SUBCUT SCH ×4 (08:17→20:58)
[2017-04-21] MEDS: POLYETHYLENE GLYCOL POWDER 17 GM PACK PO SCH (08:40)
[2017-04-21] MEDS: rOPINIRole 0.25 MG TABLET PO SCH ×3 (08:40→20:26)
[2017-04-21] MEDS: PANTOPRAZOLE 40 MG TABLET PO SCH ×2 (08:40→20:26)
[2017-04-21] MEDS: DOXAZOSIN 4 MG TABLET PO SCH (08:40)
[2017-04-21] MEDS: FUROSEMIDE 40 MG TABLET PO SCH ×3 (08:40→15:20)
[2017-04-21] MEDS: predniSONE 5 MG TABLET PO SCH (08:40)
[2017-04-21] MEDS: DESITIN 4OZ/NYSTATIN 15 GRAM MIXTURE PASTE TOP SCH ×2 (08:41→20:26)
[2017-04-21] MEDS: FINASTERIDE 5 MG TABLET PO SCH (08:41)
[2017-04-21] MEDS: GABAPENTIN 300 MG CAPSULE PO SCH ×3 (08:41→20:26)
[2017-04-21] MEDS: HYDROXYCHLOROQUINE 200 MG TABLET PO SCH (08:41)
[2017-04-21] MEDS: ATORVASTATIN 40 MG TABLET PO SCH (08:41)
--- NOTE | 2017-04-21 13:17 | Hospitalist Progress Note ---
Assessment and Plan (1) Upper gastrointestinal hemorrhage Status: Acute Assessment and plan: Status post EGD showed small hiatal hernia and gastric antral ulcers one with a visible vessel treated endoscopically. Hemoglobin stable continue Protonix Current Visit: Yes (2) Acute blood loss anemia Status: Acute Assessment and plan: Hemoglobin stable Current Visit: Yes (3) History of coronary artery disease Status: Acute Assessment and plan: Withhold aspirin for a total of 2 weeks Current Visit: Yes (4) History of congestive heart failure Status: Acute Assessment and plan: Echocardiogram EF 55-60%, PAP 28 Current Visit: Yes (5) DNR (do not resuscitate) Status: Acute Current Visit: Yes (6) Knee pain, left Status: Acute Assessment and plan: Improved after injection by Dr. Adams. Thanks for his help. Current Visit: Yes (7) Obstructive sleep apnea Status: Acute Assessment and plan: Patient sleeps on a CPAP machine at home but did not bring with him. Current Visit: Yes (8) Bacteremia Status: Acute Assessment and plan: A contaminant all antibiotics were discontinued yesterday. Current Visit: Yes (9) Generalized weakness Status: Acute Assessment and plan: Continue PT and OT patient does not want to go to rehab Current Visit: Yes Hospitalist: Subjective Interval history: Patient only walked 25 feet with physical therapy yesterday. He is feeling better today his son is going to bring him his walker from home that has arm supports. Both his son and the nurse are going to try to walk him down the halls today as we do not have physical therapy available on weekends. His blood sugars are still not well controlled probably due to chronic steroids. Exam - Constitutional Vitals: Period Temp Pulse Resp BP Sys/Walsh Pulse Ox Last 24 Hr 97.3 F-98.6 F 73-93 17-20 108-171/55-88 95-97 Exam: Heart Rate-[RRR] Lungs-[clear moving more air today. GI-[+bs soft, NT] Ext-[1+ edema] Neuro [Motor 5/5], [alert and oriented times 3] psych [normal mood and affect] General [no acute distress] Results - Labs CBC & BMP: 04/21/17 04:04 04/16/17 20:08 Lab Results: I have reviewed the past 24 hour labs
[2017-04-22] MEDS: LEVOTHYROXINE 125 MCG TABLET PO SCH (06:00)
[2017-04-22 08:30] VITALS: BP 151/68
[2017-04-22] MEDS: DOXAZOSIN 4 MG TABLET PO SCH (08:58)
[2017-04-22] MEDS: INSULIN REGULAR 100 UNIT/ML SUBCUT SCH ×2 (08:58→12:14)
[2017-04-22] MEDS: predniSONE 5 MG TABLET PO SCH (08:58)
[2017-04-22] MEDS: rOPINIRole 0.25 MG TABLET PO SCH (08:58)
[2017-04-22] MEDS: HYDROXYCHLOROQUINE 200 MG TABLET PO SCH (08:59)
[2017-04-22] MEDS: POLYETHYLENE GLYCOL POWDER 17 GM PACK PO SCH (08:59)
[2017-04-22] MEDS: PANTOPRAZOLE 40 MG TABLET PO SCH (08:59)
[2017-04-22] MEDS: FUROSEMIDE 40 MG TABLET PO SCH (08:59)
[2017-04-22] MEDS: GABAPENTIN 300 MG CAPSULE PO SCH (08:59)
[2017-04-22] MEDS: ATORVASTATIN 40 MG TABLET PO SCH (08:59)
[2017-04-22] MEDS: FINASTERIDE 5 MG TABLET PO SCH (08:59)
[2017-04-22] MEDS: DESITIN 4OZ/NYSTATIN 15 GRAM MIXTURE PASTE TOP SCH (09:01)
--- NOTE | 2017-04-22 09:36 | Discharge Summary ---
<Kalyan Santa - Last Filed: 04/22/17 09:02> Hospital Course - Hospital Course Hospital Course: 76-year-old male with a past medical history of anemia, diabetes, congestive heart failure, coronary artery disease who presented to the ED on 04/16 with complaints of shortness of breath and chest pain. Patient had coffee-ground emesis followed by loose black tarry bowel movements. Patient was admitted to ICU for further evaluation. GI Dr. Tidwell was consulted to evaluate patient. On admission patient had a hemoglobin of 8.4 which decreased to 7.3 on the next day. Patient received 4 units of packed red blood cells and his hemoglobin has stablized to 9.4. On 04/18 patient underwent EGDand found a hiatal hernia with gastric antral ulcers. Pathology was from the gastric ulcers were negative for H. pylori organisms. Patient was monitored for 2-3 days for risk of residual bleeding after endoscopically treated vessel. Patient's H&H remained stable. A pain consult was placed to Dr. Adams as he was unable to bear weight on his left knee. Patient had a left knee injection which helped his mobility. Patient needs rehab but refused. He walked 200 feet yesterday with a assistance and will be discharged home today. Patient had one of 2 blood cultures that were positive for staph epi and gram-positive rods both of which are considered a contaminant. He was given vancomycin IV for several days until we had final results. The other blood culture was negative. Discharge home on home health to follow up with Dr. Tidwell and PMD. Discharge Plan - Discharge Data Disposition: Home Health Service - Discharge Medications New Ferrous Sulfate [Iron] 325 mg PO TID #90 tablet Pantoprazole Tab [Protonix Tab] 40 mg PO BID #60 tablet Polyethylene Glycol Powder [Miralax] 17 gm PO DAILY Trolamine Salicylate 10% Cream [Aspercreme 10% Cream] 1 applic TOP QID PRN # 1 vial PRN Reason: knee pain Continue rOPINIRole [Requip] 0.25 mg PO TID Atorvastatin Calcium 40 mg PO DAILY Levothyroxine Tab [Synthroid Tab] 125 mcg PO DAILY Hydroxychloroquine [Plaquenil] 200 mg PO DAILY predniSONE TAB [PredniSONE] 5 mg PO DAILY Furosemide Tab [Lasix Tab] 40 mg PO BID DIURETIC Finasteride 5 mg PO DAILY Doxazosin Mesylate 4 mg PO DAILY Gabapentin 300 mg PO TID Fexofenadine [Syeda] 180 mg PO DAILY Changed Metformin HCl 500 mg PO BID #0 Discontinued Aspirin [Ecotrin] 81 mg PO BEDTIME Ubidecarenone [Coenzyme Q10] 200 mg PO DAILY glipiZIDE [Glipizide] 10 mg PO BID Krill/Om-3/Dha/Epa/Phospho/Ast [[place]-3 Krill Oil 300 mg Sfgl] 1 each PO DAILY Ibuprofen Tab [Motrin Tab] 400 mg PO QID PRN #20 tablet PRN Reason: back pain Methocarbamol Tab [Robaxin Tab] 500 mg PO QID PRN #20 tablet PRN Reason: low back pain - Follow Up or Referral Follow Up: Quoc Tidwell MD [Physician] - 1 Month pmddr [Other] - 2 Weeks - Forms/Instructions Exam - Constitutional Vitals: Period Temp Pulse Resp BP Sys/Walsh Pulse Ox Last 24 Hr 97 F-98.9 F 69-90 18-20 108-151/55-74 91-98 Discharge Results Procedures and tests throughout hospitalization: Pending Orders 04/16/17 20:52 Blood Culture Stat Labs on day of discharge: Labs from last 24 hours 04/22/17 04/22/17 04/22/17 07:18 04:06 02:57 Hgb 9.4 L POC Glucose 158 H 139 H 04/21/17 04/21/17 04/21/17 20:42 16:21 15:08 Hgb POC Glucose 227 H 257 H 300 H Preliminary micro results at discharge 04/16/17 20:08 Blood Culture - Preliminary Blood Staphylococcus epidermidis Gram positive rods DS: Provider Date of admission: 04/16/17 22:59 Primary care physician: . No PCP Attending physician on admission: Jonel Gracia MD Consults: 04/16/17 23:02 Consult to Physician [CONS] Routine Comment: Consulting Provider: Quoc Tidwlel Consulting Provider Notified: Yes Consult to Specialist Group: Gastroenterology When should Consulting Provider be notified: In am Person Notified: POP Date Notified: 04/17/17 Time Notified: 10:00 04/18/17 17:48 Consult to Pharmacy [CONS] Routine Reason for Pharmacy Consult: Dose/Manage Vancomycin 04/19/17 10:46 Consult to Occupational Therapy [CONS] Routine Reason for Occupational Therapy: Weakness Consult to Physical Therapy [CONS] Routine Reason for Physical Therapy: Weakness Consult to Physician [CONS] Routine 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 Provider: Ronal Adams Person Notified: Bronwyn Date Notified: 04/19/17 Time Notified: 10:50 04/20/17 08:50 Consult to Physical Therapy [CONS] Routine Reason for Physical Therapy: Weakness 04/22/17 11:22 Consult to Case Mgmt/Social Srvs [CONS] Routine Reason for Case Mgmt/Social Srvs: Home Health Discharging clinician: Kalyan Santa NP <Laura Nam R - Last Filed: 04/22/17 12:16> Hospital Course - Time spent with patient Time with patient DS: Greater than 30 minutes (60 min) Diagnosis - Discharge Diagnosis (1) Upper gastrointestinal hemorrhage Status: Acute (2) Acute blood loss anemia Status: Acute (3) History of coronary artery disease Status: Acute (4) History of congestive heart failure Status: Acute (5) DNR (do not resuscitate) Status: Acute (6) Knee pain, left Status: Acute (7) Obstructive sleep apnea Status: Acute (8) Bacteremia Status: Acute (9) Generalized weakness Status: Acute Discharge Plan - Discharge Data Condition at Discharge: Stable Discharge Diet: heart healthy, low fat, low cholesterol Activity: resume usual activities as tolerated Hygiene: no restrictions Weight Bearing at Discharge: full weight bearing Exam - Constitutional General appearance: no acute distress, morbidly obese - Respiratory Respiratory exam: Present: clear to auscultation bilaterally. Absent: rhonchi, wheezes - Cardiovascular Cardiovascular exam: Present: regular rate and rhythm. Absent: systolic murmur - GI/Abdominal GI/Abdominal exam: Present: normal bowel sounds, soft. Absent: tenderness - Neurological Exam Neurological exam: Present: alert, oriented X3 - Psychiatric Psychiatric exam: Present: normal affect, normal mood
--- NOTE | 2017-04-26 14:58 | Physician Query Form ---
CLICK EDIT DOCUMENT TO SELECT QUERY ANSWER --> OK --> SIGN Loulou Teixeira RN Clinical Core Inspector W) [phone] (f) [phone] [email or web address] PROVIDERS: Make your selection(s) from the choices in EACH section by typing an "x" and enter comments in the comment section. Please use your independent medical judgment in providing your response. This request does not imply that any particular answer is desired or expected. CLINICAL INDICATORS: (Providers should not edit this section) Based on history of CHF. Echo shows "diastolic dysfunction. EF 55-60%" BNP 17. Treated this admit with IV Lasix. Please provide further specificity regarding CHF. ACUITY: ( ) Acute ( ) Chronic (x ) Acute on Chronic ( ) Clinicallly unable to determine TYPE: ( ) Systolic (HFrEF - heart failure with reduced systolic function/EF) (x ) Diastolic (HFpEF - heart failure with preserved systolic function/EF) ( ) Combined Systolic/Diastolic ( ) Other, please specify: ( ) Clinically unable to determine ( ) The patient does NOT have CHF COMMENTS: PLEASE ALSO DOCUMENT RESPONSE IN PROGRESS NOTES AND/OR DISCHARGE SUMMARY Use of terms such as suspected, likely, or probable (associated with a specific diagnosis that is being evaluated, monitored, or treated as if it exists) are acceptable and can be restated in the discharge summary if not ruled out. MTDD
== END 2017-04-22 12:27 | disposition home health service (06) | DRG 377 ==
LOC: EDBD → EDUNIT# → N.ED 19:24 → N.EDINP 22:59 → SUATTDRO 22:59 → N.ICU 04-17 00:03 → N.5E 04-18 14:59
PROVIDERS: ADMIT Internal Medicine; ATTEND Internal Medicine

== ENCOUNTER 2019-05-11 16:10 | Inpatient (IN) ==
[2019-05-11] MEDS ORDERED: methylPREDNISolone SOD SUC 125 MG/2 ML VIAL IV STA (16:56)
[2019-05-11] MEDS ORDERED: ONDANSETRON 4 MG/2 ML VIAL IV STA (16:56)
[2019-05-11] MEDS ORDERED: LEVOFLOXACIN INJ 750 MG in PREMIX 1 EACH IV STA (16:56)
[2019-05-11] MEDS ORDERED: ALBUTEROL 2.5 MG/3 ML NEB RESP TX SCH (17:00)
[2019-05-11] MEDS ORDERED: SODIUM CHLORIDE 0.9% 1,000 ML IV STA (20:48)
[2019-05-11 21:02] LABS: Apearance,Urine Slightly Hazy (Clear); Bilirubin,Urine Negative (Negative); Blood, Urine Negative (Negative); Calcium Oxalate Crystals,Urine Occasional /HPF (Few); Glucose,Urine (UA) Negative (Negative); Hyaline Casts,Urine 19 /LPF (0-3); Ketones,Urine 20 mg/dL (Negative); Mucus,Urine Many /LPF (Occasional); Nitrite,Urine Negative (Negative); Protein,Urine Negative; RBC,Urine 4 /HPF (0-4); Squamous Epithelial Cell,Urine Occasional /HPF (0-10); Urine Color Yellow (Yellow); Urine Specific Gravity 1.016 (1.001-1.035); Urine Urobilinogen < 2.0 EU/DL (0.2-1.0); WBC,Urine 4 /HPF (0-6)
[2019-05-11] MEDS ORDERED: SODIUM CHLORIDE 0.9% 500 ML IV STA ×2 (21:26→21:52)
[2019-05-11 23:54] LABS: Basophils % 0.4 % (0.0-0.8); Hematocrit 59.7 VOL% (42.0-52.0); Hemoglobin 17.3 GM/DL (14.0-18.0); Immature Granulocytes % 0.5 %; Immature Granulocytes Absolute 0.03 #; Lymphocytes # 0.2 10*3/uL (1.4-4.0); Mean Corpuscular Volume 89.6 FL (87-102); Mean Platelet Volume 8.9 FL (9.6-12.0); Monocytes % 1.8 % (1.7-12.7); Neutrophils % 94.3 % (38.7-73.9); Platelet Count 209 T/CUMM (130-400); Red Blood Count 6.66 MC/CUMM (3.8-5.5); Red Cell Distribution Width 19.8 % (9.3-17.3); White Blood Count 5.6 T/CUMM (4-12)
[2019-05-12 00:03] LABS: INR 1.3; PT Patient Result 13.7 SECS
[2019-05-12 00:10] LABS: Partial Thromboplastin Time 30.4 SECS (0-40)
[2019-05-12 00:26] LABS: Alanine Aminotransferase 9 U/L (16-61); Albumin 2.5 G/DL (3.4-5.0); Alkaline Phosphatase 148 U/L (45-117); Amylase 18 U/L (25-115); Aspartate Amino Transferase 225 U/L (0-37); Blood Urea Nitrogen 17 MG/DL (7-18); Calcium 7.7 MG/DL (8.5-10.1); Glucose 120 MG/DL (74-106); Osmolality,Calculated 270.2 MOS/KG (273-304); Total Protein 6.2 G/DL (6.4-8.3); Troponin I < 0.015 NG/ML (0.00-0.045)
[2019-05-12 01:23] LABS: Band Neutrophils 1 % (0-10); Lymphocytes 3 % (20-55); Metamyelocytes 1 %; Myelocytes 1 %; Segmented Neutrophils 93 % (50-85); Total Cells Counted 100
[2019-05-12 01:24] LABS: Hypochromasia 1+; Platelet Estimate Normal; Polychromasia Few
[2019-05-12] MEDS ORDERED: ONDANSETRON 4 MG/2 ML VIAL IV PRN (03:31)
[2019-05-12] MEDS: ENOXAPARIN 40 MG/0.4 ML SYRINGE SUBCUT SCH (04:46)
[2019-05-12] MEDS: methylPREDNISolone SOD SUC 40 MG/1 ML VIAL IV SCH ×2 (04:46→20:58)
[2019-05-12] MEDS: LEVOTHYROXINE 125 MCG TABLET PO SCH (06:31)
[2019-05-12 07:18] LABS: Albumin 2.2 G/DL (3.4-5.0); Bilirubin,Total 0.7 MG/DL (0.2-1.0); Calcium 8.3 MG/DL (8.5-10.1); Osmolality,Calculated 277.1 MOS/KG (273-304)
[2019-05-12] MEDS: ALBUTEROL/IPRATROPIUM 3 ML NEB RESP TX SCH ×3 (07:21→19:57)
[2019-05-12 07:50] LABS: Basophils % 0.3 % (0.0-0.8); Hematocrit 53.7 VOL% (42.0-52.0); Immature Granulocytes % 1.3 %; Immature Granulocytes Absolute 0.04 #; Lymphocytes # 0.3 10*3/uL (1.4-4.0); Lymphocytes % 8.9 % (21.2-54.2); Mean Corpuscular HGB Conc 30.2 GM/DL (32-36); Mean Corpuscular Volume 86.1 FL (87-102); Mean Platelet Volume 9.4 FL (9.6-12.0); Monocytes % 1.6 % (1.7-12.7); Neutrophils % 87.9 % (38.7-73.9); Platelet Count 250 T/CUMM (130-400); Red Blood Count 6.24 MC/CUMM (3.8-5.5); Red Cell Distribution Width 19.4 % (9.3-17.3)
[2019-05-12 07:56] LABS: Hemoglobin 16.2 GM/DL (14.0-18.0)
[2019-05-12] MEDS: GABAPENTIN 300 MG CAPSULE PO SCH ×3 (09:42→20:57)
[2019-05-12] MEDS: FUROSEMIDE 40 MG TABLET PO SCH (09:42)
[2019-05-12] MEDS: POTASSIUM CHLORIDE 20 MEQ TABLET PO SCH ×2 (09:42→20:57)
[2019-05-12] MEDS: ATORVASTATIN 40 MG TABLET PO SCH (09:42)
[2019-05-12] MEDS: ASCORBIC ACID 500 MG TABLET PO SCH ×2 (09:42→20:56)
[2019-05-12] MEDS: FINASTERIDE 5 MG TABLET PO SCH (09:42)
[2019-05-12] MEDS: CARBIDOPA/LEVODOPA 25-100 MG TABLET PO SCH (09:42)
[2019-05-12] MEDS: PANTOPRAZOLE 40 MG TABLET PO SCH (09:42)
[2019-05-12] MEDS: CALCIUM (CARBONATE)/VITAMIN D 600 MG-400 UNIT TABLET PO SCH ×2 (09:42→20:56)
[2019-05-12] MEDS: LEVOFLOXACIN INJ 500 MG in PREMIX 1 EACH IV SCH (21:02)
[2019-05-12] MEDS: DESITIN 4OZ/NYSTATIN 15 GRAM MIXTURE PASTE TOP SCH (21:05)
[2019-05-13] MEDS: ALBUTEROL/IPRATROPIUM 3 ML NEB RESP TX SCH ×4 (00:15→19:00)
[2019-05-13] MEDS: LEVOTHYROXINE 125 MCG TABLET PO SCH (06:38)
[2019-05-13 06:39] LABS: Calcium 8.3 MG/DL (8.5-10.1); Osmolality,Calculated 280.8 MOS/KG (273-304)
[2019-05-13 06:46] LABS: Basophils % 0.2 % (0.0-0.8); Immature Granulocytes % 0.6 %; Immature Granulocytes Absolute 0.03 #; Lymphocytes # 0.4 10*3/uL (1.4-4.0); Lymphocytes % 6.6 % (21.2-54.2); Mean Corpuscular HGB Conc 30.2 GM/DL (32-36); Mean Corpuscular Volume 85.7 FL (87-102); Mean Platelet Volume 9.2 FL (9.6-12.0); Monocytes % 6.6 % (1.7-12.7); Platelet Count 225 T/CUMM (130-400); Red Blood Count 5.95 MC/CUMM (3.8-5.5); Red Cell Distribution Width 19.3 % (9.3-17.3); White Blood Count 5.3 T/CUMM (4-12)
[2019-05-13 06:49] LABS: Hemoglobin 15.4 GM/DL (14.0-18.0)
[2019-05-13 07:45] LABS: Total Protein (Chem) 6.1 G/DL (6.4-8.3)
[2019-05-13] MEDS: ENOXAPARIN 40 MG/0.4 ML SYRINGE SUBCUT SCH (08:41)
[2019-05-13] MEDS: methylPREDNISolone SOD SUC 40 MG/1 ML VIAL IV SCH ×2 (08:41→20:58)
[2019-05-13] MEDS: PANTOPRAZOLE 40 MG TABLET PO SCH (08:43)
[2019-05-13] MEDS: CARBIDOPA/LEVODOPA 25-100 MG TABLET PO SCH (08:43)
[2019-05-13] MEDS: GABAPENTIN 300 MG CAPSULE PO SCH ×3 (08:43→20:56)
[2019-05-13] MEDS: ATORVASTATIN 40 MG TABLET PO SCH (08:43)
[2019-05-13] MEDS: CALCIUM (CARBONATE)/VITAMIN D 600 MG-400 UNIT TABLET PO SCH ×2 (08:43→20:55)
[2019-05-13] MEDS: ASCORBIC ACID 500 MG TABLET PO SCH ×2 (08:43→20:56)
[2019-05-13] MEDS: FUROSEMIDE 40 MG TABLET PO SCH (08:43)
[2019-05-13] MEDS: POTASSIUM CHLORIDE 20 MEQ TABLET PO SCH ×2 (08:43→20:56)
[2019-05-13] MEDS: FINASTERIDE 5 MG TABLET PO SCH (08:43)
[2019-05-13 10:25] LABS: Albumin (SPE) 3.2 G/DL (3.2-5.3); Albumin (SPE) Rel % 53.2 %; Alpha 1 (SPE) 0.3 G/DL (0.1-0.4); Alpha 1 (SPE) Rel % 5.2 %; Alpha 2 (SPE) 0.9 G/DL (0.4-1.0); Alpha 2 (SPE) Rel % 15.3 %; Beta (SPE) Rel % 15.9 %; Gamma (SPE) 0.6 G/DL (0.7-1.7); Gamma (SPE) Rel % 10.4 %
[2019-05-13] MEDS: SKIN HEALING OINT (AQUAPHOR) 50 GM TUBE TOP SCH (16:36)
[2019-05-13] MEDS: DESITIN 4OZ/NYSTATIN 15 GRAM MIXTURE PASTE TOP SCH ×2 (16:37→22:50)
[2019-05-13] MEDS: LEVOFLOXACIN INJ 500 MG in PREMIX 1 EACH IV SCH (21:15)
[2019-05-14] MEDS: ALBUTEROL/IPRATROPIUM 3 ML NEB RESP TX SCH ×4 (00:05→19:23)
[2019-05-14 03:50] LABS: Apearance,Urine CLEAR (Clear); Bilirubin,Urine Negative (Negative); Blood, Urine Negative (Negative); Glucose,Urine (UA) Negative (Negative); Hyaline Casts,Urine 3 /LPF (0-3); Ketones,Urine Negative (Negative); Mucus,Urine Occasional /LPF (Occasional); Nitrite,Urine Negative (Negative); Protein,Urine Negative; RBC,Urine 1 /HPF (0-4); Urine Color Yellow (Yellow); Urine Specific Gravity 1.027 (1.001-1.035); Urine Urobilinogen < 2.0 EU/DL (0.2-1.0); WBC,Urine <1 /HPF (0-6)
[2019-05-14 04:52] LABS: Risk Ratio 2.74; VLDL CHOLESTEROL 15.4 MG/DL
[2019-05-14] MEDS: LEVOTHYROXINE 125 MCG TABLET PO SCH (06:24)
[2019-05-14 07:40] LABS: Calcium 7.9 MG/DL (8.5-10.1); Osmolality,Calculated 284.7 MOS/KG (273-304)
[2019-05-14] MEDS: methylPREDNISolone SOD SUC 40 MG/1 ML VIAL IV SCH ×2 (10:03→21:12)
[2019-05-14] MEDS: SKIN HEALING OINT (AQUAPHOR) 50 GM TUBE TOP SCH (10:04)
[2019-05-14] MEDS: DESITIN 4OZ/NYSTATIN 15 GRAM MIXTURE PASTE TOP SCH (10:05)
[2019-05-14] MEDS: GABAPENTIN 300 MG CAPSULE PO SCH ×3 (10:18→21:11)
[2019-05-14] MEDS ORDERED: DIAZEPAM 5 MG TABLET PO ONE (12:18)
[2019-05-14] MEDS ORDERED: MAGNESIUM SULF RIDER 4 GM in PREMIX 1 EACH IV PRN (12:22)
[2019-05-14] MEDS ORDERED: MAGNESIUM SULF RIDER 2 GM in PREMIX 1 EACH IV PRN (12:22)
[2019-05-14] MEDS: POTASSIUM CHLORIDE 20 MEQ TABLET PO SCH ×2 (16:29→21:12)
[2019-05-14] MEDS: FINASTERIDE 5 MG TABLET PO SCH (16:30)
[2019-05-14] MEDS: ASCORBIC ACID 500 MG TABLET PO SCH ×2 (16:30→21:12)
[2019-05-14] MEDS: FUROSEMIDE 40 MG TABLET PO SCH (16:30)
[2019-05-14] MEDS: PANTOPRAZOLE 40 MG TABLET PO SCH (16:30)
[2019-05-14] MEDS: CALCIUM (CARBONATE)/VITAMIN D 600 MG-400 UNIT TABLET PO SCH ×2 (16:30→21:12)
[2019-05-14] MEDS: ATORVASTATIN 40 MG TABLET PO SCH (16:30)
[2019-05-14] MEDS: TAMSULOSIN 0.4 MG CAPSULE PO SCH (16:30)
[2019-05-14] MEDS: CARBIDOPA/LEVODOPA 25-100 MG TABLET PO SCH (16:31)
[2019-05-14] MEDS: LEVOFLOXACIN INJ 500 MG in PREMIX 1 EACH IV SCH (21:12)
[2019-05-15] MEDS: DESITIN 4OZ/NYSTATIN 15 GRAM MIXTURE PASTE TOP SCH ×3 (00:11→22:15)
[2019-05-15] MEDS: ALBUTEROL/IPRATROPIUM 3 ML NEB RESP TX SCH ×4 (00:27→19:12)
[2019-05-15] MEDS: LEVOTHYROXINE 125 MCG TABLET PO SCH (06:23)
[2019-05-15 08:51] LABS: Hepatitis B Core IgM Quant 0.08 Index; Hepatitis B Surface Ag Quant < 0.10 Index; Hepatitis B Surface Ag Result Negative (Negative); Hepatitis C Virus Ab Quant 0.09 Index; Hepatitis C Virus Ab Result Negative (Negative)
[2019-05-15] MEDS: ATORVASTATIN 40 MG TABLET PO SCH (09:21)
[2019-05-15] MEDS: ASCORBIC ACID 500 MG TABLET PO SCH ×2 (09:21→22:16)
[2019-05-15] MEDS: CARBIDOPA/LEVODOPA 25-100 MG TABLET PO SCH (09:21)
[2019-05-15] MEDS: TAMSULOSIN 0.4 MG CAPSULE PO SCH ×2 (09:21→21:11)
[2019-05-15] MEDS: POTASSIUM CHLORIDE 20 MEQ TABLET PO SCH ×2 (09:21→21:11)
[2019-05-15] MEDS: GABAPENTIN 300 MG CAPSULE PO SCH ×3 (09:21→21:16)
[2019-05-15] MEDS: CALCIUM (CARBONATE)/VITAMIN D 600 MG-400 UNIT TABLET PO SCH ×2 (09:21→21:11)
[2019-05-15] MEDS: FUROSEMIDE 40 MG TABLET PO SCH (09:21)
[2019-05-15] MEDS: PANTOPRAZOLE 40 MG TABLET PO SCH (09:21)
[2019-05-15] MEDS: FINASTERIDE 5 MG TABLET PO SCH (09:21)
[2019-05-15] MEDS: methylPREDNISolone SOD SUC 40 MG/1 ML VIAL IV SCH ×2 (09:26→21:12)
[2019-05-15] MEDS: SKIN HEALING OINT (AQUAPHOR) 50 GM TUBE TOP SCH (09:26)
[2019-05-15] MEDS: LEVOFLOXACIN INJ 500 MG in PREMIX 1 EACH IV SCH (22:15)
[2019-05-16] MEDS: ALBUTEROL/IPRATROPIUM 3 ML NEB RESP TX SCH ×4 (01:18→19:11)
[2019-05-16] MEDS: LEVOTHYROXINE 125 MCG TABLET PO SCH (06:26)
[2019-05-16] MEDS: SKIN HEALING OINT (AQUAPHOR) 50 GM TUBE TOP SCH (09:49)
[2019-05-16] MEDS: FINASTERIDE 5 MG TABLET PO SCH (09:56)
[2019-05-16] MEDS: GABAPENTIN 300 MG CAPSULE PO SCH ×3 (09:56→20:24)
[2019-05-16] MEDS: DESITIN 4OZ/NYSTATIN 15 GRAM MIXTURE PASTE TOP SCH ×2 (09:56→20:25)
[2019-05-16] MEDS: ASCORBIC ACID 500 MG TABLET PO SCH ×2 (09:56→20:24)
[2019-05-16] MEDS: ATORVASTATIN 40 MG TABLET PO SCH (09:56)
[2019-05-16] MEDS: POTASSIUM CHLORIDE 20 MEQ TABLET PO SCH ×2 (09:56→20:34)
[2019-05-16] MEDS: LEVOFLOXACIN 750 MG TABLET PO SCH (09:56)
[2019-05-16] MEDS: CALCIUM (CARBONATE)/VITAMIN D 600 MG-400 UNIT TABLET PO SCH ×2 (09:56→20:24)
[2019-05-16] MEDS: CARBIDOPA/LEVODOPA 25-100 MG TABLET PO SCH (09:56)
[2019-05-16] MEDS: FUROSEMIDE 40 MG TABLET PO SCH (09:56)
[2019-05-16] MEDS: PANTOPRAZOLE 40 MG TABLET PO SCH (09:56)
[2019-05-16] MEDS: methylPREDNISolone SOD SUC 40 MG/1 ML VIAL IV SCH ×2 (11:34→20:23)
[2019-05-16] MEDS: TRIAMCINOLONE 0.1% CREAM 15 GM TUBE TOP SCH ×2 (15:30→20:25)
[2019-05-16] MEDS: TAMSULOSIN 0.4 MG CAPSULE PO SCH (20:24)
[2019-05-17] MEDS: ALBUTEROL/IPRATROPIUM 3 ML NEB RESP TX SCH ×4 (01:10→19:14)
[2019-05-17] MEDS: LEVOTHYROXINE 125 MCG TABLET PO SCH (06:29)
[2019-05-17] MEDS: methylPREDNISolone SOD SUC 40 MG/1 ML VIAL IV SCH (09:37)
[2019-05-17] MEDS: GABAPENTIN 300 MG CAPSULE PO SCH ×3 (09:38→20:26)
[2019-05-17] MEDS: LEVOFLOXACIN 750 MG TABLET PO SCH (09:38)
[2019-05-17] MEDS: POTASSIUM CHLORIDE 20 MEQ TABLET PO SCH ×2 (09:38→20:26)
[2019-05-17] MEDS: ASCORBIC ACID 500 MG TABLET PO SCH ×2 (09:38→20:26)
[2019-05-17] MEDS: FUROSEMIDE 40 MG TABLET PO SCH (09:38)
[2019-05-17] MEDS: ATORVASTATIN 40 MG TABLET PO SCH (09:39)
[2019-05-17] MEDS: SKIN HEALING OINT (AQUAPHOR) 50 GM TUBE TOP SCH (09:39)
[2019-05-17] MEDS: CARBIDOPA/LEVODOPA 25-100 MG TABLET PO SCH (09:39)
[2019-05-17] MEDS: CALCIUM (CARBONATE)/VITAMIN D 600 MG-400 UNIT TABLET PO SCH ×2 (09:39→20:30)
[2019-05-17] MEDS: FINASTERIDE 5 MG TABLET PO SCH (09:39)
[2019-05-17] MEDS: PANTOPRAZOLE 40 MG TABLET PO SCH (09:39)
[2019-05-17] MEDS: DESITIN 4OZ/NYSTATIN 15 GRAM MIXTURE PASTE TOP SCH ×2 (09:49→20:26)
[2019-05-17] MEDS: TRIAMCINOLONE 0.1% CREAM 15 GM TUBE TOP SCH ×2 (09:50→20:27)
[2019-05-17] MEDS: BETHANECHOL 25 MG TABLET PO SCH ×2 (16:23→20:26)
[2019-05-17] MEDS: TAMSULOSIN 0.4 MG CAPSULE PO SCH (20:26)
[2019-05-18] MEDS: ALBUTEROL/IPRATROPIUM 3 ML NEB RESP TX SCH ×4 (00:45→19:28)
[2019-05-18] MEDS: LEVOTHYROXINE 125 MCG TABLET PO SCH (06:09)
[2019-05-18] MEDS ORDERED: predniSONE 20 MG TABLET PO SCH (09:00)
[2019-05-18] MEDS: POTASSIUM CHLORIDE 20 MEQ TABLET PO SCH ×2 (09:02→20:38)
[2019-05-18] MEDS: CARBIDOPA/LEVODOPA 25-100 MG TABLET PO SCH (09:03)
[2019-05-18] MEDS: LEVOFLOXACIN 750 MG TABLET PO SCH (09:03)
[2019-05-18] MEDS: ATORVASTATIN 40 MG TABLET PO SCH (09:03)
[2019-05-18] MEDS: GABAPENTIN 300 MG CAPSULE PO SCH ×3 (09:03→20:38)
[2019-05-18] MEDS: CALCIUM (CARBONATE)/VITAMIN D 600 MG-400 UNIT TABLET PO SCH ×2 (09:03→20:38)
[2019-05-18] MEDS: FUROSEMIDE 40 MG TABLET PO SCH (09:03)
[2019-05-18] MEDS: BETHANECHOL 25 MG TABLET PO SCH ×2 (09:03→20:38)
[2019-05-18] MEDS: PANTOPRAZOLE 40 MG TABLET PO SCH (09:03)
[2019-05-18] MEDS: FINASTERIDE 5 MG TABLET PO SCH (09:04)
[2019-05-18] MEDS: DESITIN 4OZ/NYSTATIN 15 GRAM MIXTURE PASTE TOP SCH ×2 (09:04→20:42)
[2019-05-18] MEDS: SKIN HEALING OINT (AQUAPHOR) 50 GM TUBE TOP SCH (09:04)
[2019-05-18] MEDS: ASCORBIC ACID 500 MG TABLET PO SCH ×2 (09:04→20:37)
[2019-05-18] MEDS: TRIAMCINOLONE 0.1% CREAM 15 GM TUBE TOP SCH ×2 (09:04→20:42)
[2019-05-18] MEDS: TAMSULOSIN 0.4 MG CAPSULE PO SCH (20:38)
[2019-05-19] MEDS: ALBUTEROL/IPRATROPIUM 3 ML NEB RESP TX SCH ×4 (00:52→19:33)
[2019-05-19] MEDS: LEVOTHYROXINE 125 MCG TABLET PO SCH (06:01)
[2019-05-19] MEDS: SKIN HEALING OINT (AQUAPHOR) 50 GM TUBE TOP SCH (09:47)
[2019-05-19] MEDS: POTASSIUM CHLORIDE 20 MEQ TABLET PO SCH ×2 (09:47→20:52)
[2019-05-19] MEDS: ATORVASTATIN 40 MG TABLET PO SCH (09:47)
[2019-05-19] MEDS: FINASTERIDE 5 MG TABLET PO SCH (09:47)
[2019-05-19] MEDS: ASCORBIC ACID 500 MG TABLET PO SCH ×2 (09:48→20:52)
[2019-05-19] MEDS: CALCIUM (CARBONATE)/VITAMIN D 600 MG-400 UNIT TABLET PO SCH ×2 (09:48→21:01)
[2019-05-19] MEDS: FUROSEMIDE 40 MG TABLET PO SCH (09:48)
[2019-05-19] MEDS: GABAPENTIN 300 MG CAPSULE PO SCH ×3 (09:48→20:52)
[2019-05-19] MEDS: PANTOPRAZOLE 40 MG TABLET PO SCH (09:54)
[2019-05-19] MEDS: BETHANECHOL 25 MG TABLET PO SCH ×3 (09:54→20:52)
[2019-05-19] MEDS: CARBIDOPA/LEVODOPA 25-100 MG TABLET PO SCH (09:55)
[2019-05-19] MEDS: TRIAMCINOLONE 0.1% CREAM 15 GM TUBE TOP SCH ×2 (15:58→21:50)
[2019-05-19] MEDS: DESITIN 4OZ/NYSTATIN 15 GRAM MIXTURE PASTE TOP SCH ×2 (15:58→21:50)
[2019-05-19] MEDS: TAMSULOSIN 0.4 MG CAPSULE PO SCH (20:52)
[2019-05-19] MEDS: ACETAMINOPHEN 325 MG TABLET PO PRN (22:36)
[2019-05-20] MEDS: ALBUTEROL/IPRATROPIUM 3 ML NEB RESP TX SCH ×4 (00:09→19:46)
[2019-05-20 05:31] LABS: Calcium 7.5 MG/DL (8.5-10.1); Osmolality,Calculated 269.2 MOS/KG (273-304)
[2019-05-20 05:58] LABS: Basophils % 0.5 % (0.0-0.8); Eosinophils # 0.1 10*3/uL (0.0-0.87); Hematocrit 50.6 VOL% (42.0-52.0); Hemoglobin 15.1 GM/DL (14.0-18.0); Immature Granulocytes % 4.7 %; Immature Granulocytes Absolute 0.26 #; Lymphocytes % 18.2 % (21.2-54.2); Mean Corpuscular HGB Conc 29.8 GM/DL (32-36); Mean Corpuscular Volume 85.8 FL (87-102); Mean Platelet Volume 9.5 FL (9.6-12.0); Monocytes % 12.8 % (1.7-12.7); Neutrophils % 61.8 % (38.7-73.9); Platelet Count 194 T/CUMM (130-400); Red Cell Distribution Width 19.1 % (9.3-17.3); White Blood Count 5.5 T/CUMM (4-12)
[2019-05-20] MEDS: LEVOTHYROXINE 125 MCG TABLET PO SCH (06:02)
[2019-05-20] MEDS: SKIN HEALING OINT (AQUAPHOR) 50 GM TUBE TOP SCH (09:35)
[2019-05-20] MEDS: CALCIUM (CARBONATE)/VITAMIN D 600 MG-400 UNIT TABLET PO SCH ×2 (09:36→20:53)
[2019-05-20] MEDS: GABAPENTIN 300 MG CAPSULE PO SCH ×3 (09:36→20:52)
[2019-05-20] MEDS: FUROSEMIDE 40 MG TABLET PO SCH (09:36)
[2019-05-20] MEDS: ATORVASTATIN 40 MG TABLET PO SCH (09:36)
[2019-05-20] MEDS: POTASSIUM CHLORIDE 20 MEQ TABLET PO SCH ×2 (09:36→20:52)
[2019-05-20] MEDS: PANTOPRAZOLE 40 MG TABLET PO SCH (09:52)
[2019-05-20] MEDS: BETHANECHOL 25 MG TABLET PO SCH ×3 (09:57→20:52)
[2019-05-20] MEDS: ASCORBIC ACID 500 MG TABLET PO SCH (09:57)
[2019-05-20] MEDS: CARBIDOPA/LEVODOPA 25-100 MG TABLET PO SCH (09:57)
[2019-05-20] MEDS: FINASTERIDE 5 MG TABLET PO SCH (10:02)
[2019-05-20] MEDS: DESITIN 4OZ/NYSTATIN 15 GRAM MIXTURE PASTE TOP SCH ×2 (10:07→20:54)
[2019-05-20] MEDS: TRIAMCINOLONE 0.1% CREAM 15 GM TUBE TOP SCH ×2 (10:08→20:54)
[2019-05-20] MEDS: ACETAMINOPHEN 325 MG TABLET PO PRN (15:34)
[2019-05-20] MEDS: BICALUTAMIDE 50 MG TABLET PO SCH (15:35)
[2019-05-20] MEDS: TAMSULOSIN 0.4 MG CAPSULE PO SCH (20:52)
[2019-05-21] MEDS: ALBUTEROL/IPRATROPIUM 3 ML NEB RESP TX SCH ×2 (00:18→07:34)
[2019-05-21] MEDS: LEVOTHYROXINE 125 MCG TABLET PO SCH (06:12)
[2019-05-21] MEDS: CALCIUM (CARBONATE)/VITAMIN D 600 MG-400 UNIT TABLET PO SCH (09:12)
[2019-05-21] MEDS: BICALUTAMIDE 50 MG TABLET PO SCH (09:12)
[2019-05-21] MEDS: GABAPENTIN 300 MG CAPSULE PO SCH (09:12)
[2019-05-21] MEDS: BETHANECHOL 25 MG TABLET PO SCH (09:12)
[2019-05-21] MEDS: FUROSEMIDE 40 MG TABLET PO SCH (09:13)
[2019-05-21] MEDS: CARBIDOPA/LEVODOPA 25-100 MG TABLET PO SCH (09:13)
[2019-05-21] MEDS: SKIN HEALING OINT (AQUAPHOR) 50 GM TUBE TOP SCH (09:13)
[2019-05-21] MEDS: POTASSIUM CHLORIDE 20 MEQ TABLET PO SCH (09:13)
[2019-05-21] MEDS: PANTOPRAZOLE 40 MG TABLET PO SCH (09:13)
[2019-05-21] MEDS: DESITIN 4OZ/NYSTATIN 15 GRAM MIXTURE PASTE TOP SCH (09:14)
[2019-05-21] MEDS: TRIAMCINOLONE 0.1% CREAM 15 GM TUBE TOP SCH (09:14)
[2019-05-21 11:22] VITALS: BP 112/59
== END 2019-05-21 15:26 | disposition hospice, home (50) | DRG 191 ==
LOC: EDBD → EDUNIT# → N.ED 16:10 → SUATTDRO 05-12 01:58 → N.EDINP 05-12 01:58 → N.2E 05-12 02:10
PROVIDERS: ADMIT Internal Medicine Nephrology; ATTEND Internal Medicine